=== PATIENT | female | born 1940 | race Caucasian/White ===

== ENCOUNTER 2019-08-10 09:37 | Outpatient (REF) | payer MEDICARE, MEDICAID, SELFPAY ==
[2019-08-10 19:02] LABS: ALT 33 U/L (14-59); AST 23 U/L (15-37); Albumin 3.7 g/dL (3.4-5.0); Alkaline Phosphatase 69 U/L (46-116); Anion Gap 5.7 mmol/L (3-11); BUN 21 mg/dL (7-18); Bilirubin, Total 0.6 mg/dL (0.2-1.0); CO2 31.3 mmol/L (21.0-32.0); CREATININE 0.93 mg/dL (0.55-1.02); Calculated LDL 97 mg/dL (<100); Chloride 104 mmol/L (98-107); Cholesterol 192 mg/dL (<200); Estimated GFR 58.46 (mL/min/1.73m2); Glucose 97 mg/dL (74-106); HDL Cholesterol 82 mg/dL (40-60); Potassium 4.3 mmol/L (3.5-5.1); Sodium 141 mmol/L (136-145); Total Protein 6.7 g/dL (6.4-8.2); Triglyceride 67 mg/dL (<150)
== END 2019-08-10 09:57 ==
LOC: NCHCN 09:37
PROVIDERS: PCP Physician Assistant; Visit Provider Nurse Practitioner Family
DX: E78.5 Hyperlipidemia, unspecified (principal)
CPT/HCPCS: 80053; 80061

== ENCOUNTER 2021-06-08 17:53 | Outpatient (REF) | payer MEDICARE, MEDICAID, SELFPAY ==
[2021-06-08 20:30] LABS: Abs Immature Grans 0.02 10^3/uL (0.0-0.06); Absolute Basophil Count 0.02 10^3/uL (0.0-0.2); Absolute Eosinophil Count 0.25 10^3/uL (0.0-0.7); Absolute Lymphocyte Count 1.72 10^3/uL (1.2-3.4); Absolute Monocyte Count 0.34 10^3/uL (0.1-0.8); Absolute Neutrophil Count 3.38 10^3/uL (1.2-6.7); Basophils % 0.3; Eosinophils % 4.4; HCT 40.1 % (36.0-46.0); HGB 12.8 g/dL (11.2-15.7); Immature Grans % 0.3; MCH 28.3 pg (27.0-33.0); MCHC 31.9 % (32.0-36.0); MCV 88.7 fL (80-95); MPV 11.4 fL (8.0-11.0); Monocytes % 5.9; Neutrophils % 59.1; Nucleated RBC 0 %; Platelet Count 236 10^3/uL (130-400); RBC 4.52 10^6/uL (3.93-5.22); RDW-SD 42.5 fL; WBC 5.73 10^3/uL (4.4-10.8)
[2021-06-08 20:54] LABS: ALT 24 U/L (14-59); AST 20 U/L (15-37); Albumin 3.6 g/dL (3.4-5.0); Alkaline Phosphatase 72 U/L (46-116); Anion Gap 7.6 mmol/L (3-11); BUN 25 mg/dL (7-18); Bilirubin, Total 0.3 mg/dL (0.2-1.0); CO2 28.4 mmol/L (21.0-32.0); CREATININE 0.9 mg/dL (0.55-1.02); Calcium 8.8 mg/dL (8.5-10.1); Chloride 105 mmol/L (98-107); Glucose 118 mg/dL (74-106); Potassium 4.5 mmol/L (3.5-5.1); Sodium 141 mmol/L (136-145); TSH 1.04 uIU/mL (0.36-3.74); Total Protein 6.9 g/dL (6.4-8.2)
[2021-06-09 14:51] LABS: Vitamin B12 543 pg/mL (193-986)
== END 2021-06-08 17:54 | disposition home or self-care (01) ==
LOC: NCHCN 17:53
PROVIDERS: PCP Physician Assistant; Visit Provider Nurse Practitioner Family
DX: R53.83 Other fatigue (principal)
CPT/HCPCS: 80053; 82607; 84443; 85025

== ENCOUNTER 2022-04-28 17:41 | Outpatient (REF) | payer MEDICARE, MEDICAID, SELFPAY ==
[2022-04-28 20:44] LABS: Abs Immature Grans 0.01 10^3/uL (0.0-0.06); Absolute Basophil Count 0.03 10^3/uL (0.0-0.2); Absolute Eosinophil Count 0.42 10^3/uL (0.0-0.7); Absolute Lymphocyte Count 1.26 10^3/uL (1.2-3.4); Absolute Monocyte Count 0.41 10^3/uL (0.1-0.8); Basophils % 0.4; Eosinophils % 5.6; HCT 26.9 % (36.0-46.0); HGB 8.6 g/dL (11.2-15.7); Immature Grans % 0.1; Lymphocytes % 16.7; MCH 27.9 pg (27.0-33.0); MCV 87 fL (80-95); MPV 10.2 fL (8.0-11.0); Monocytes % 5.4; Neutrophils % 71.8; Platelet Count 341 10^3/uL (130-400); RBC 3.08 10^6/uL (3.93-5.22); RDW 13.2 % (11.7-14.6); RDW-SD 41.5 fL; WBC 7.53 10^3/uL (4.4-10.8)
[2022-04-28 20:56] LABS: Iron 17 ug/dL (50-170); Total Iron Binding Capacity 370 ug/dL (250-450); Transferrin Sat 5 % (15-50)
[2022-04-28 21:08] LABS: Ferritin 15 ng/mL (8-252)
[2022-04-28 21:13] LABS: Diff Comment Diff Reviewed; Hypochromasia 2+; Ovalocytes 2+
== END 2022-04-28 17:42 | disposition home or self-care (01) ==
LOC: NCHCN 17:41
PROVIDERS: PCP Physician Assistant; Visit Provider Nurse Practitioner Family
DX: K92.2 Gastrointestinal hemorrhage, unspecified (principal)
CPT/HCPCS: 82728; 83540; 83550; 85025

== ENCOUNTER 2022-05-12 13:21 | Outpatient (REF) | payer MEDICARE, MEDICAID, SELFPAY ==
[2022-05-12 20:08] LABS: Abs Immature Grans 0.01 10^3/uL (0.0-0.06); Absolute Basophil Count 0.03 10^3/uL (0.0-0.2); Absolute Eosinophil Count 0.27 10^3/uL (0.0-0.7); Absolute Lymphocyte Count 1.11 10^3/uL (1.2-3.4); Absolute Monocyte Count 0.36 10^3/uL (0.1-0.8); Absolute Neutrophil Count 2.94 10^3/uL (1.2-6.7); Basophils % 0.6; Eosinophils % 5.7; HCT 27.6 % (36.0-46.0); HGB 8.5 g/dL (11.2-15.7); Immature Grans % 0.2; Lymphocytes % 23.5; MCH 26.3 pg (27.0-33.0); MCHC 30.8 % (32.0-36.0); MCV 85 fL (80-95); MPV 10.3 fL (8.0-11.0); Monocytes % 7.6; Neutrophils % 62.4; Platelet Count 279 10^3/uL (130-400); RBC 3.23 10^6/uL (3.93-5.22); RDW 13.2 % (11.7-14.6); RDW-SD 41.6 fL; WBC 4.72 10^3/uL (4.4-10.8)
== END 2022-05-12 13:22 | disposition home or self-care (01) ==
LOC: NCHCN 13:21
PROVIDERS: PCP Physician Assistant; Visit Provider Nurse Practitioner Family
DX: K92.2 Gastrointestinal hemorrhage, unspecified (principal)
CPT/HCPCS: 85025

== ENCOUNTER 2022-06-16 17:25 | Outpatient (REF) | payer MEDICARE, MEDICAID, SELFPAY ==
[2022-06-16 20:47] LABS: Abs Immature Grans 0.02 10^3/uL (0.0-0.06); Absolute Basophil Count 0.03 10^3/uL (0.0-0.2); Absolute Eosinophil Count 0.28 10^3/uL (0.0-0.7); Absolute Monocyte Count 0.48 10^3/uL (0.1-0.8); Absolute Neutrophil Count 3.68 10^3/uL (1.2-6.7); Basophils % 0.5; Eosinophils % 4.6; HCT 34.6 % (36.0-46.0); HGB 10.4 g/dL (11.2-15.7); Immature Grans % 0.3; Lymphocytes % 26.3; MCH 24.3 pg (27.0-33.0); MCHC 30.1 % (32.0-36.0); MCV 81 fL (80-95); MPV 10.8 fL (8.0-11.0); Monocytes % 7.9; Neutrophils % 60.4; Platelet Count 313 10^3/uL (130-400); RBC 4.28 10^6/uL (3.93-5.22); RDW 15.9 % (11.7-14.6); RDW-SD 45.7 fL; WBC 6.09 10^3/uL (4.4-10.8)
== END 2022-06-16 17:26 | disposition home or self-care (01) ==
LOC: NCHCN 17:25
PROVIDERS: PCP Physician Assistant; Visit Provider Nurse Practitioner Family
DX: D64.9 Anemia, unspecified (principal)
CPT/HCPCS: 85025

== ENCOUNTER 2022-07-15 15:03 | Outpatient (REF) | payer MEDICARE, MEDICAID, SELFPAY ==
[2022-07-15 19:23] LABS: HGB 11.3 g/dL (11.2-15.7); MCH 23.8 pg (27.0-33.0); MCHC 30.5 % (32.0-36.0); MCV 78 fL (80-95); Platelet Count 246 10^3/uL (130-400); RBC 4.75 10^6/uL (3.93-5.22); RDW 17.3 % (11.7-14.6); RDW-SD 49.1 fL; WBC 4.68 10^3/uL (4.4-10.8)
== END 2022-07-15 15:04 | disposition home or self-care (01) ==
LOC: NCHCN 15:03
PROVIDERS: PCP Physician Assistant; Visit Provider Nurse Practitioner Family
DX: D64.9 Anemia, unspecified (principal)
CPT/HCPCS: 85027

== ENCOUNTER 2022-12-22 13:50 | Outpatient (REF) | payer MEDICARE, MEDICAID, SELFPAY ==
--- NOTE | 2022-12-22 10:25 | SKI_PTH ---
PATIENT: Stefanie Swanson LOC: [facility] U#:[id number] AGE/SX: 82/F ROOM: RE12/22/[address]: Penny Bowen : 1940 BED: DIS: 12/22/2022 SPEC #: [id number] RECD: 12/23/22 12:23 STATUS: TJ REQ #: [id number] JENNIFER: 12/22/22 10:[address] RECD BY: Majo Downs ENTERED: 12/23/22 12:23 SP TYPE: DRAGAN NASH DR: Henry Lr Tissues: 1 - SKIN BIOPSY(SHAVE/PUNCH) Procedures: SKIN LEVEL 4 Comments: [id number]
[2022-12-22 22:13] LABS: HCT 39.4 % (36.0-46.0); HGB 12.4 g/dL (11.2-15.7); MCH 26.6 pg (27.0-33.0); MCHC 31.5 % (32.0-36.0); MCV 85 fL (80-95); MPV 11.3 fL (8.0-11.0); Platelet Count 238 10^3/uL (130-400); RBC 4.66 10^6/uL (3.93-5.22); RDW 13.4 % (11.7-14.6); RDW-SD 41.3 fL; WBC 6.11 10^3/uL (4.4-10.8)
[2022-12-22 22:24] LABS: BUN 21 mg/dL (7-18); CREATININE 0.9 mg/dL (0.55-1.02); Calcium 9.5 mg/dL (8.5-10.1); Chloride 103 mmol/L (98-107); Estimated GFR 64.63 (mL/min/1.73m2); Glucose 91 mg/dL (74-106); Potassium 4.5 mmol/L (3.5-5.1); Sodium 137 mmol/L (136-145)
== END 2022-12-22 13:51 | disposition home or self-care (01) ==
LOC: NCHCN 13:50
PROVIDERS: PCP Physician Assistant; Visit Provider Nurse Practitioner Family
DX: D64.9 Anemia, unspecified (principal); R53.81 Other malaise; C44.619 Basal cell carcinoma of skin of left upper limb, including shoulder
CPT/HCPCS: 80048; 85027; 88305

== ENCOUNTER 2023-12-19 19:36 | Outpatient (REF) | payer MEDICARE, MEDICAID, SELFPAY ==
--- OUTSIDE RECORDS SUMMARY | 2023-12-19 19:41 | XMS_ITS | Continuity of Care Document ---
Author Organization [facility] Address [address] [place] [address] Care Team Providers Care Weed Thinner Name Role Phone Primeau Jacob DAN Primary Care Physician Encounter [facility] [id number] Date(s): 09/30/23 - 09/30/23 [facility] [address] [place] [address] Discharge Disposition: Home or Self Care Attending Physician: Linette Bowen PRESIDENT CEO & FOUNDER Admitting Physician: Linette Bowen PRESIDENT CEO & FOUNDER Allergies, Adverse Reactions, Alerts Substance Reaction Severity Status ANIMAL DANDER Unknown Active LATEX Urticaria Moderate Active SHELLFISH DERIVED Palpitations Unknown Active HOUSE DUST Unknown Active MOLD Unknown Active sulfa drugs Unknown Active Assessment and Plan Diagnostic Tests Pending * Clostridium Difficile 09/30/23 * Giardia & Cryptosporidium Antigen Detection, Feces RUST 09/30/23 * Lactoferrin, Fecal by SARIKA [place] 09/30/23 * H. pylori Antigen UV 09/30/23 Medications Advair Diskus 250 mcg-50 mcg inhalation powder INHALE ONE PUFF BY MOUTH EVERY DAY Start Date: 09/13/22 Status: Ordered Albuterol (Eqv-Ventolin HFA) 90 mcg/inh inhalation aerosol INHALE TWO PUFFS BY MOUTH ONCE A DAY DIRECTED Start Date: 09/13/22 Status: Ordered atorvastatin 20 mg oral tablet 20 mg = 1 tab, TAKE ONE TABLET BY MOUTH EVERY NIGHT FOR CHOLESTEROL Start Date: 09/13/22 Status: Ordered azelastine 137 mcg/inh (0.1%) nasal spray USE 2 SPRAYS INTO BOTH NOSTRILS TWO TIMES A DAY NEEDED Start Date: 09/13/22 Status: Ordered glucosamine 0 Refill(s) Start Date: 09/13/22 Status: Ordered oxyCODONE 5 mg oral tablet 5 mg = 1 tab, Oral, every 8 hr, PRN as needed for pain, # 3 tab, 0 Refill(s), Pharmacy: [facility], 165.1, cm, 09/29/22 10:39:00 EDT, Height/Length Dosing, 61.9, kg, 09/29/22 10:39:00 EDT, Weight Dosing Start Date: 09/29/22 Status: Ordered Vital-D oral tablet 1 tab, Oral, Daily, # 100 tab, 0 Refill(s) Start Date: 09/13/22 Status: Ordered vitamin E 0 Refill(s) Start Date: 09/13/22 Status: Ordered Problem List Condition Confirmation Course Effective Dates Status H ealth Status Informant Anemia Confirmed Active Aortic stenosis Confirmed Active Back pain Confirmed Active Carpal tunnel syndrome, left Confirmed Active Chest pain Confirmed Active Fatigue Confirmed Active Gastric hemorrhage Confirmed Active Hand pain Confirmed Active Murmur Confirmed Active Hyperlipidemia Confirmed Active Urinary frequency Confirmed Active Insomnia Confirmed Active IBS (irritable bowel syndrome) Confirmed Active Stage 2 moderate COPD by GOLD classification Confirmed Active Osteopenia Confirmed Active Seasonal allergies Confirmed Active Seborrheic keratosis Confirmed Active Tendinitis of right shoulder Confirmed Active Procedures Procedure Date Related Diagnosis Body Site Status Carpal tunnel release 09/28/22 Com pleted Appendectomy Completed Tubal ligation Completed Results Laboratory List Name Date Fecal Bacterial Pathogens by PCR [facility] 09/03 11/25 Most recent to oldest [Reference Range]: 1 Salmonella PCR [facility] [Negative] Negative *NA* (09/30/23 4:00 PM) Shigella/Enteroinvasive E. coli [facility] [Neg ative] Negative *NA* (09/30/23 4:00 PM) [facility] CAMPYLOBACTER PCR [facility] [Negative] Negative *NA* (09/30/23 4:00 PM) Shiga Toxin PCR [facility] [Negative] Negative 1 *NA* (09/30/23 4:00 PM) 1Result Comment: Test performed [place] [address] Social History Social History Type Response Tobacco Tobacco use status u nknown Tobacco Use:. Sex Female Patient Care team information Care Team Personnel Name: Jacob Morton MD Position: No Access Member Role: Informed Provider Address: Address: [facility] [address] [place] [address]- Care Team Related Persons Name: HARDIK ENGLE Address: Home [address] [id number]
--- OUTSIDE RECORDS SUMMARY | 2023-12-19 19:41 | XMS_ITS | Encounter Summary ---
Author Organization [facility] Address [address] [place] [address] Care Team Providers Care Tree Surgeon Name Role Phone [facility] Rigoberto Belle Primary Care Provider Unknown, Provider Primary Care Provider [phone] Encounter Details Date Type Department Care Team (Late st Contact Info) Description 06/05/2022 Lab Requisition [facility] Pathology & Laboratory Medicine [facility] [address] [place] [address] Outr Resulting Lab, Provider Social History Tobacco Use Types Packs/Day Years Used Date Smoking Tobacco: Never Assessed Sex and Gender Information Value Date Recorded Sex Assigned at Not on file Gender Identity Not on file Sexual Orientation Not on file documented as of this encounter Plan of Treatment Upcoming Encounters Date Type Department Care Team (Late st Contact Info) Description 03/23/2024 13:00 EST Office Visit [facility] Dermatology 3rd Floor [facility] [address] [place] [address] Usha Bustos MD [address] [place] [address] documented as of this encounter Procedures Procedure Name Priority Date/Time Associated Diagnosis Comments GIARDIA AND CRYPTOSPORIDIUM ANTIGENS Routine 06/05/2022 11:40 EST documented in this encounter Results * GIARDIA AND CRYPTOSPORIDIUM ANTIGENS (06/05/2022 11:40 EST) Giardia and Cryptosporidium Cryptosporidium Antigen Neg and Giardia Antigen Neg Cryptosporidium Antigen Neg and Giardia Antigen Neg 12:58 EST [facility] Feces SPECIMEN FROM RECTUM / Unknown 06/05/2022 11:40 EST 06/06/2022 17:11 EST Provider Outr Resulting Lab MICROBIOLOGY - GENERAL ORDERABLES Performing Organization Address City/State/[facility] Co de Phone Number [facility] [address] [place] [address] documented in this encounter Visit Diagnoses Not on filedocumented in this encounter Care Teams Tree Surgeon Relationship Specialty Start Date End Date [facility], [address] [place] [address] PCP - General 03/17/23 12/07/23 Unknown, Provider, PCP - General 12/08/23 documented as of this encounter
--- OUTSIDE RECORDS SUMMARY | 2023-12-19 19:41 | XMS_ITS | Continuity of Care Document ---
Author Organization [facility] Address [address] [place] [address] Care Team Providers Care Coal Cutting Machine Operator Name Role Phone Primeau Jacob DAN Primary Care Physician Encounter [facility] [id number] Date(s): 09/29/22 - 09/29/22 [facility] [address] [place] [address] Discharge Disposition: Home or Self Care Attending Physician: Zaheer Shoemaker MD Admitting Physician: Zaheer Shoemaker MD Referring Physician: Zaheer Shoemaker MD Allergies, Adverse Reactions, Alerts Substance Reaction Severity Status ANIMAL DANDER Unknown Active LATEX Urticaria Moderate Active SHELLFISH DERIVED Palpitations Unknown Active HOUSE DUST Unknown Active MOLD Unknown Active sulfa drugs Unknown Active Assessment and Plan Future Appointments Functional Status 09/29/22 ADLs Independent Recent Travel History No recent travel Other exposure to Infectious Disease Non e Medications Advair Diskus 250 mcg-50 mcg inhalation [...] pain, # 3 tab, 0 Refill(s), Pharmacy: [facility], 165.1, cm, 09/29/22 10:39:00 EDT, Height/Length [...] pleted Appendectomy Completed Tubal ligation Completed Results Orders for Microbiology Reports Name Date MRSA Screen Culture 09/29/22 Microbiology Reports TEST:MRSA Screen Culture STATUS:Order in Progress BODY SITE: SOURCE:[facility] COLLECTED DATE/TIME:09/29/22 10:44 AM PRELIMINARY REPORT Negative MRSA screen Vital Signs Most recent to oldest [Reference Range]: 1 2 3 Temperature Temporal Artery [36-38 Deg C] 36.4 Deg C (09/29/22 3:30 PM) 35.7 Deg C *LOW* (09/29/22 1:35 PM) 35.8 Deg C *LOW* (09/29/22 1:21 PM) Temperature Temporal Artery (DegF) [97.3-100 Deg F] 97.52 Deg F (09/29/22 3:30 PM) 96.26 Deg F *LOW* (09/29/22 1:35 PM) 96.44 Deg F *LOW* (09/29/22 1:21 PM) Peripheral Pulse Rate [60-100 bpm] 50 bpm *LOW* (09/29/22 3:10 PM) 51 bpm *LOW* (09/29/22 3:05 PM) 52 bpm *LOW* (09/29/22 2:50 PM) Heart Rate Monitored [60-100 bpm] 52 bpm *LOW* (09/29/22 3:30 PM) 58 bpm *LOW* (09/29/22 3:20 PM) 59 bpm *LOW* (09/29/22 3:10 PM) Respiratory Rate [12-24 br/min] 19 br/min (09/29/22 3:30 PM) 16 br/min (09/29/22 3:20 PM) 16 br/min (09/29/22 3:10 PM) Blood Pressure [90-140/60-90 mmHg] 154/89mmHg *HI* (09/29/22 3:30 PM) 190/84mmHg *HI* (09/29/22 3:20 PM) 177/61mmHg *HI* (09/29/22 3:10 PM) Mean Arterial Pressure, Cuff [65-140 mmHg] 111 mmHg (09/29/22 3:30 PM) 119 mmHg (09/29/22 3:20 PM) 100 mmHg (09/29/22 3:10 PM) Weight 61.900 kg (09/29/22 10:17 AM) Weight Dosing 61.900 kg (09/29/22 10:17 AM) Height 165.100 cm (09/29/22 10:17 AM) Height/Length Dosing 165.100 cm (09/29/22 10:17 AM) Body Mass Index 22.710 kg/m2 (09/29/22 10:17 AM) Social History Social History Type Response Tobacco Tobacco use status u nknown Tobacco Use:. Sex Female Discharge instructions * Amada Viera: PERFORM Event Display: Discharge Instructions Authored Date: [id number] JENNIFER TOMAS :1940 Age:82 years Sex:Female Visit Date:09/29/2022 Primary Care Physician: Estella DAN, Jacob Olguin MD Hospital Discharge Instructions We would like to thank you for allowing us to assist you with your healthcare needs. The following includes patient education materials and information regarding your injury/illness. Your Next Steps Instructions From Your Care Team Orthopedic Surgery Discharge Instructions ok to take down dressings in 2 days shower and cover with band aids do not soak incisions ok to use hand for light activities ?? Pain Control ?Take your pain relief medication when discomfort first begins. ?Can use stool softener while taking the narcotic to avoid problems with constipation. ? Call your doctor if you: ?Develop a fever over 101 degrees. ?Have increased redness, warmth, discharge, swelling, or hardness around the operative site. ?Circulation changes such as tingling, numbness or your fingers appear blue or white. ?Your pain is not adequately controlled, despite taking your pain medication routinely. ?? On the day of surgery, or while taking narcotic pain medication: No driving, operating power equipment,?? drinking alcohol,?? or taking mood altering drugs? Apply warm, moist compress to IV site if sore or red, for 20 minutes, 4 times a day, for 2-3 days.?? Call your doctor if IV site soreness or redness persists. In the event of any problems after surgery, contact your doctor or the Emergency Room @ . Ortho Office: [phone]?? Scheduled Future Appointments Tuesday 3:30 PM EDT ?? With: Kate Gil PA-C Where: [facility] [address] [place] [address], [address] [place] [address] Status: Confirmed Medications What How Much When Instructions Next Dose New oxyCODONE (oxyCODONE 5 mg oral tablet) 1 tab Oral (given by mouth) Every 8 hours as needed for as needed for pain Pickup at [facility] Pharmacy Information [facility]: [address] [place], [place] [id number] [phone] Your Summary Your Care Team Admitting Physician - Brad MARCUM, Zaheer Correa MD Attending Physician - Zaheer Shoemaker MD Primary Care Physician - [facility], Jacob Olguin MD Referring Physician - Zaheer Shoemaker MD Tests Performed/Pending MRSA Screen Culture?-- Results Pending -- Discharge Vitals Temperature??(Temporal Artery) 96.3 ??F (35.7 ??C) Heart Rate??(Peripheral) 58 Heart Rate??(Monitored) 58 Respiratory Rate?? 16 Blood Pressure?? 166/67?? Height?? 65.00 in (165.100 cm) Weight?? 136.49 lb (61.900 kg) BMI?? 22.710 Allergies LATEX??(Urticaria) ANIMAL DANDER HOUSE DUST MOLD SHELLFISH DERIVED??(Palpitations) sulfa drugs Patient Name:GENOVEVAANKUSHAN I have received this information and my questions have been answered. Patient/Auto Service Writer Name: Patient/Auto Service Writer Signature: Relationship to Patient: Witness Name/Signature: Date: Electronically Signed on: 09/29/2022 13:48 EDTSigned by:PAF History and physical note * Aneta Chavez: PERFORM Event Display: History and Physical Authored Date: [id number] ADAMSJENNIFER Roth :1940 Age:82 years Sex:Female Primary Care Physician: Estella [facility], Jacob Olguin MD Visit Date:??09/13/2022 [1] ? 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 ??Wakes up at night quite often with this. Review of Systems Constitutional:?No??fevers,?No??chills,?No??sweats Eye:?No??recent visual problems ENT:?No??ear pain,?No??nasal congestion,?No??sore throat Respiratory:?No??shortness of breath,?No??cough Cardiovascular:?No??Chest pain,?No??palpitations,?No??syncope Gastrointestinal:?Nonausea,?No??vomiting,?No??diarrhea Genitourinary:?No??hematuria Alex/Lymph:?No??bruising tendency,?No??swollen lymph glands Endocrine:?No??excessive thirst,??No??excessive hunger Musculoskeletal:??No??back pain,??No??neck pain,??No??joint pain,??No??muscle pain,??No??decreased range of motion Integumentary:?No??rash,?No??pruritus,?No??abrasions Neurologic: Alert & oriented X 4 Psychiatric:?No??anxiety,?No??depression Physical Exam ?Vitals & Measurements ?HT:??165.10??cm?? WT:??143.1??kg?? BMI:??52.5?? BSA:??2.56?? Well-nourished well-developed acute distress alert and oriented appearing stated age. ??Has normal elbow wrist hand range of motion normal cap refill distally no open wounds signs of erythema or infection. ??Normal two-point termination distally.?? No real evidence of thenar atrophy bilaterally. ??Review of electrodiagnostics note intact??ulnar nerve with carpal tunnel syndrome on the left.?? Right side was not checked but the symptoms are equal and consistent Assessment/Plan 1.??Carpal tunnel syndrome, left??G56.02 ?Carpal tunnel syndrome options watchful waiting??bracing which has been done therapy injection or surgical intervention after discussing this she wanted to have surgical procedure performed whichwill be a carpal tunnel release she would like to and has asked for both sides to be done at once??which I felt was reasonable given the situation so we will set her up for bilateral carpal tunnel release and see her again at that time. ?Ordered: PAT Surgery / Procedure Nursing Review Request., 09/13/22 15:42:00 EDT, Carpal tunnel syndrome, left PAT Surgery / Procedure Nursing Review Request., 09/13/22 15:44:00 EDT, Brad [facility], Zaheer Correa MD, Primary Procedure, Local/Moderate Sedation, Bilateral carpal tunnel, Bilateral carpal tunnel syndrome. Need 30 minutes. Luxation. Date and time per uc architect. BMI 22, Carpal tunnel syndrome, left ?? Problem List/Past Medical History Ongoing ?Anemia ??Aortic stenosis ??Back pain ??Carpal tunnel syndrome, left ??Chest pain ??Fatigue ??Gastric hemorrhage ??Hand pain ??Hyperlipidemia ??IBS (irritable bowel syndrome) ??Insomnia ??Morbid obesity ??Murmur ??Osteopenia ??Seasonal allergies ??Seborrheic keratosis ??Stage 2 moderate COPD by GOLD classification ??Tendinitis of right shoulder ??Urinary frequency Historical ?No qualifying data Medications ??Advair Diskus 250 mcg-50 mcg inhalation powder ??Albuterol (Eqv-Ventolin HFA) 90 mcg/inh inhalation aerosol ??atorvastatin 20 mg oral tablet, 20 mg= 1 tab ??azelastine 137 mcg/inh (0.1%) nasal spray ??glucosamine ??Vital-D oral tablet, 1 tab, Oral, Daily ??vitamin E Allergies LATEX??(Urticaria) ANIMAL DANDER HOUSE DUST MOLD SHELLFISH DERIVED??(Palpitations) sulfa drugs Social History Electronic Cigarette/Vaping ??Electronic Cigarette Use: Never. Tobacco ??Tobacco use status unknown Tobacco Use:. [2] [1]??Office Visit Note; Zaheer Shoemaker MD 09/13/2022 15:44 EDT [2]??Office Visit Note; Zaheer Shoemaker MD 09/13/2022 15:44 EDT Electronically Signed on 09/22/22 12:07 PM Aneta Chavez Electronically Signed on 09/22/22 01:38 PM Zaheer Shoemaker MD Patient Care team information Care Team Personnel Name: [facility]ella [facility] Position: No Access Member Role: Primary Care Physician Address: Address: [address] [address] Care Team Related Persons Name: HARDIK ENGLE Address: Home [address] [place] [id number]
--- OUTSIDE RECORDS SUMMARY | 2023-12-19 19:41 | XMS_ITS | Encounter Summary ---
Author Organization [facility] Address [address] [place] [address] Care Team Providers Care Weapons Officer Naval Activity Name Role Phone [facility] Rigoberto Belle Primary Care Provider Unknown, Provider Primary Care Provider [phone] Encounter Details Date Type Department Care Team (Late st Contact Info) Description 05/09/2020 Lab Requisition [facility] Pathology & Laboratory Medicine [facility] [address] [place] [address] Outr Resulting Lab, Provider Social History Tobacco [...] Info) Description 03/23/2024 13:00 EST Office Visit [facility] Dermatology 3rd Floor [facility] [address] [place] [address] Usha Bustos MD [address] [place] [address] documented as of this encounter Procedures Procedure Name Priority Date/Time Associated Diagnosis Comments ZZCOVID-19 TEST [facility] PCR Today 05/09/2020 9:15 EST COVID-19 TESTING Routine 05/09/2020 9:15 EST documented in this encounter Results * COVID-19 TEST [facility] PCR (05/09/2020 9:15 EST) Swab ENTIRE NASOPHARYNX / Unknown 05/09/2020 9:15 EST 05/09/2020 16:45 EST Provider Outr Resulting Lab MICROBIOLOGY - GENERAL ORDERABLES [facility] [address] [place] [address] * COVID-19 TESTING (05/09/2020 9:15 EST) COVID-19 rt-PCR Result Negative Negative 05/10/2020 14:[address] [facility] Comment: This test was developed and its performance characteristics determined by [facility]. It has not been cleared or approved by the US Food and Drug Administration. FDA does not require this test to go through premarket FDA review. This test is used for clinical purposes. It should not be regarded as investigational or for research. This laboratory is certified under the Clinical Laboratory Improvement Amendments (CLIA) as qualified to perform high complexity clinical laboratory testing. This test is based on the [facility] COVID-19 Emergency Use Authorization (EUA) assay, with minor modification as defined by the FDA Performed on the [employer] 7 Pro RT-PCR System. This test has not been FDA cleared or approved. This test has been authorized by FDA under an EUA for use by authorized laboratories. This test has been authorized only for detection of nucleic acid from 2019-nCoV, not for any other viruses or pathogens. This test is only authorized for the duration of the declaration that circumstances exist justifying the authorization of emergency use of in vitro diagnostic tests for detection and/or diagnosis of 2019-nCoV under section 564(b)(1) of Act, 21 U.S.C ?? 360bbb-3(b) (1), unless the authorization is terminated or revoked sooner. Negative results do not preclude 2019-nCoV infection and should not be used as the sole basis for treatment or other patient management decisions. Negative results must be combined with clinical observations, patient history, and epidemiological information. Performing Lab [facility] Lab 05/10/2020 14:[address] [facility] Swab 05/09/2020 9:15 EST 05/09/2020 16:45 EST Provider Outr Resulting Lab MICROBIOLOGY - GENERAL ORDERABLES [facility] [address] [place] [address] documented in this encounter Visit Diagnoses Not on filedocumented in this encounter Additional Health Concerns Infection Onset Date Last Indicated Resolved Time COVID-19 04/14/2020 04/14/2020 05/14/2020 22:1 6 EST documented as of this encounter Care Teams Weapons Officer [employer] Relationship Specialty Start Date End Date [facility], [address] [place] [address] PCP - General 03/17/23 12/07/23 Unknown, Provider, PCP - General 12/08/23 documented as of this encounter
--- OUTSIDE RECORDS SUMMARY | 2023-12-19 19:41 | XMS_ITS | Encounter Summary ---
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 No 03/17/2023 Cognitive Status Response Date of Assessm ent Because of a physical, menta l, or emotional condition, does this person have serious difficulty concentrating, remembering, or making decisions? No 03/17/2023 documented as of this encounter Patient Instructions * Patient Instructions* Ruel Gibson - 04/14/2023 8:00 EST WOUND CARE INSTRUCTIONS FOR SKIN SURGERY (SUTURED OR OPEN WOUND) SUTURE REMOVAL IN 10 DAYS BANDAGE: Leave the bandage in place for 24 hours. You may shower or bathe after 24 hours. Remove the bandage and replace it after the showering (see below). DISCOMFORT: Expect discomfort. Take acetaminophen (for example, TylenolTM) as directed. If this does not provide sufficient relief, take ibuprofen (AdvilTM), up to 600 mg every 8 hours). You may takeboth of these together or alternate them. We do not routinely prescribe narcotic pain medications. If pain is severe and not relieved by the above measures, please call the office. BLEEDING: Some blood seeping into the bandage is NORMAL. If the bleeding soaks through the dressing, remove the dressing, and apply firm, steady pressure with a moist clean wash cloth for fifteen minutes. If the bleeding stops, redress the wound. If not, call our office. ACTIVITY: No strenuous activity for the first 48 hours after surgery. Keep your head elevated. APPEARANCE: Swelling and bruising are normal. Some redness is normal, but the wound should not be red, hot and tender. If the wound rapidly swells up or becomes increasingly inflamed, warm, or drainspus, please call our office. WOUND CARE: Change the dressing daily and/or when it becomes wet. Wash hands with soap and water and clean the wound with soap and warm water. You may use 3% hydrogen peroxide and a cotton swab to loosen and remove the crusting from a wound with stitches. Apply a thin layer of sterile petroleum jelly over the wound. Cover with Telfa or similar non-stick dressing or bandage Tape in place with Hypafix or paper tape Mild tenderness, pinpoint bleeding and a thin mucous-like discharge are normal. Keep all sutured wounds covered daily for a full 7 days. Open wounds will need to be covered for much longer. If you have sutures that require removal, you will receive specific instructions regarding when andwhere to have them removed. If you have dissolving sutures they will fall apart and be gone in 10-14 days. OPEN WOUND HEALING (Wound without sutures): If your wound was left open to heal on its own, approximately one week after surgery a pink/red halo will form around the outside of the wound; this is newskin. The center of the wound will appear yellowish white and produce some drainage. The pink halo will slowly migrate toward the center of the wound until the wound is covered with new shiny pink skin. There will be a mucus-like drainage on the dressing and there will be no more drainage when the wound is completely healed. WHEN TO CONTACT YOUR PHYSICIAN: Contact you physician if your wound becomes increasingly sore, tender, red, or warm, or if the surgery site rapidly swells. Please call our office [phone] or if you have any questions or concerns. documented in this encounter Progress Notes * Ruel Gibson - 04/14/2023 0800 EST S: Patient is here today for excision of a melanoma in situ of the left upper back. Also has a slowly healing wound from the prior excision of BCC on the left upper arm. O: - pink biopsy scar of left upper back - left upper arm: linear scar with central hypergranulation tissue A/P: Melanoma in situ - excision, see note below 2. Hypergranulation tissue of left upper arm - area was prepped in a sterile fashion with alcohol swab and silver nitrate was applied topically to hypergranulation tissue. LINEAR EXCISION PROCEDURE NOTE PATIENT INFORMATION: Stefanie Swanson [id number] 1940 DATE OF PROCEDURE: 04/14/2023 SURGEON: Ruel Gibson DO PUBLICATIONS EDITOR: Huyen Whitt MD PREOPERATIVE DIAGNOSIS: Melanoma in-situ LOCATION: left upper back LESION SIZE: 1.5 x 1.5 cm MARGINS PER SIDE: 0.5 cm TOTAL EXCISION DIAMETER: 2.5 x 2.5 cm INDICATIONS: The indication, risks, benefits and alternatives to this procedure were discussed in detail with the patient and all questions were answered. The patient had no contraindications to surgery with local anesthesia. Informed consent was obtained in writing. PROCEDURE: Patient position: right lateral decubitus Anesthesia: 1% lidocaine with epinephrine 1:100,000 local infiltration Prep: Chlorhexidine The patient was brought to the operative suite. The lesion was identified, prepped and draped in the usual sterile fashion. Following complete anesthesia, the skin was incised in a fusiform fashion to the level of the subcutis with a number 15 surgical blade. The tissue was removed in the mid subcutis. The wound was undermined in all directions with care to avoid functionally important nerves and vessels. Hemostasis was achieved with spot electrocoagulation. The wound edges were approximated with 4.0 Vicryl (polyglactin 910) buried interrupted sutures at the level of the dermis and subcutis. The epidermis was approximated with 4.0 Prolene (polypropylene). The final wound length was 8.5 centimeters. The wound edges were cleansed with peroxide and a sterile pressure dressing was applied over telfa and petrolatum. Verbal and written wound care instructions were given. The patient tolerated the procedure well and left the operating suite in excellent condition. The surgical specimen was submitted to pathology for histologic evaluation. POSTOPERATIVE DIAGNOSIS: Melanoma in-situ FINAL PROCEDURE: Excision and Linear Repair BLOOD LOSS: minimal OPERATIVE TIME: 30 minutes COMPLICATIONS: none NOTE: Patient will have sutures removed in 10 days at outpatient rehab facility. Ruel Gibson 04/14/2023 9:22 Attestation Statement: I was present for the entire procedure. Huyen Whitt MD Dermatology [facility] documented in this encounter Miscellaneous Notes * Result Encounter Note - Ruel Gibson - 04/14/2023 0800 EST LVM to discuss results. Cathy, please let Stefanie know that there was no residual melanoma left behind in the excision. No further treatment needed at this time. * Result Encounter Note - Susan Tillman MA - 04/14/2023 0800 EST Called patient, relayed biopsy results. Patient understood and had no further questions about results. Patient is interested in a referral to have her stitches removed at [facility] in the wound care/rehabilitation services department with Gris Li. She already has an appointment on Tuesday. Susan Tillman MA 15:11 04/19/2023 documented in this encounter Plan of Treatment Upcoming Encounters Date Type Department Care Team (Late st Contact Info) Description 03/23/2024 13:00 EST Office Visit [facility] Dermatology 3rd Floor [facility] [address] [place] [address] Usha Bustos MD [address] [place], [place] [address] documented as of this encounter Procedures Procedure Name Priority Date/Time Associated Diagnosis Comments DERMATOLOGY SURGICAL PATHOLOGY Routine 04/14/2023 8:37 EST Melanoma in situ of torso excluding breast (HCC-CMS) documented in this encounter Results * DERMATOLOGY SURGICAL PATHOLOGY (04/14/2023 8:37 EST) Note to Patient The following pathology results have been interpreted by your pathologist and may be available to you before your health provider has had the opportunity to review them. Please allow time for your provider to receive these results and explore management options, if applicable. 04/18/2023 14:02 [facility] Final Diagnosis A. SKIN OF BACK, LEFT UPPER, EXCISION: - Epidermal reparative change and dermal scar, consistent with biopsy site. - No residual melanoma in situ identified. 04/18/2023 14:02 [facility] Attestation By the signature below, the attending physician certifies that they have 1) personally conducted a gross and/or microscopic examination of the described specimen(s), and/or personally interpreted the results of laboratory testing of the described specimen(s), and 2) personally rendered or confirmed the above diagnosis. 04/18/2023 14:02 [facility] at 1402 Microscopic Description The epidermis shows reparative changes with effacement of the rete ridge pattern. The underlying dermis has fibrosis with fibroblasts and collagen bundles oriented parallel to the epidermis. There is a reactive vascular pattern. 04/18/2023 14:02 [facility] Clinical History Excision of MIS; clinical diagnosis code: D03.59 04/18/2023 14:02 [facility] Gross Description A. Received in formalin labelled with proper patient identification (initials D, S) and A. Left upper back is an ellipse of white skin oriented as per the Surgical pathology requisition that measures 7.5 cm medial to lateral by 2.3 cm superior to inferior and excised to a depth of 0.9 cm. The cutaneous surface has a central white wrinkled firm area with slightly irregular borders that measures 1.3 x 1.0 cm. The specimen is sectioned from medial (level 1) to lateral (level 22 ) and entirely submitted as follows: INK RICHARDS: Blue-surgical margin of superior half of specimen Black surgical margin of inferior half of specimen BLOCK RICHARDS: A1- level 1, medial tip, reverse enface A2- levels 2 and 3 A3- level 4 A4- level 5 A5- level 6 A6- level 7 A7- level 8 A8- level 9 A9- level 10 A10- level 11 A11- level 12 A12- level 13 A13- level 14 A14- level 15 A15- level 16 A16- levels 17 and 18 A17- level 19 and 20 A18- level 21 A19- level 22, lateral tip, reverse enface PORSCHE VELIZ(ASCP) 04/15/2023 9:07 04/18/2023 14:02 [facility] Performing Lab [facility] 04/18/2023 14:02 [facility] Scanned Images 04/18/2023 14:02 [facility] Tissue SPECIMEN FROM SKIN / Unknown Collection, Other / Unknown 04/14/2023 8:37 EST 04/14/2023 11:23 EST Huyen Whitt MD PATHOLOGY ORDERABLES [facility] [address] [place] [address] documented in this encounter Visit Diagnoses Diagnosis Melanoma in situ of torso excluding breast (HCC-CMS)- Primary documented in this encounter Care Teams Hardware Sales Assistant Relationship Specialty Start Date End Date [facility], [address] [place] [address] PCP - General 03/17/23 12/07/23 documented as of this encounter
--- OUTSIDE RECORDS SUMMARY | 2023-12-19 19:41 | XMS_ITS | Encounter Summary ---
Author Organization [facility] Address [address] [place] [address] Care Team Providers Care Retort Load Expediter Name Role Phone [facility], Rigoberto Primary Care Provider Reason for Visit * Reason Comments Basal Cell Carcinoma Left upper arm * Referral (Routine) - Receiving Office to Obtain Authorization Specialty Diagnoses / Procedures [facility]erred To Contact Dermatology Diagnoses Basal cell carcinoma of skin, unspecified Linette Bowen, [address] [place] [address] [facility] Dermatology [address] [place] [id number] Referral ID Status Reason Start Date Expiration Date Visits Requested Visits Authorized [id number] Receiving Office to Obtain Authorization 1 1 Encounter Details Date Type Department Care Team (Late st Contact Info) Description 03/17/2023 9:00 EST Office Visit [facility] Dermatology 5th Floor [facility] [address] [place], [place] [address] Ruel Gibson [address] [place] [phone] Basal cell carcinoma (BCC) of left upper arm (Primary Dx); Neoplasm of uncertain behavior of skin Social History Tobacco Use Types Packs/Day Years [...] Instructions * Patient Instructions* Ruel Gibson - 03/17/2023 9:00 EST WOUND CARE INSTRUCTIONS FOR SKIN SURGERY (SUTURED OR OPEN WOUND) BANDAGE: Leave the bandage in place for [...] site rapidly swells. Please call our office [phone] or if you have any questions or concerns. documented in this encounter Progress Notes * Ruel Gibson - 03/17/2023 0900 EST Images from the original note were not included. S: Stefanie is here today for excision of a BCC of left posterior shoulder O: - left posterior shoulder: 0.8cm x 0.6cm pink shiny papule - left upper back: 1cm irregularly pigmented patch A/P: BCC, left posterior shoulder - excision, see note below Neoplasm of uncertain behavior - Location: left upper back - Ddx: r/o MM - Given the diagnostic uncertainty, offered to biopsy this today. Pt agrees. Discussed the risks ofa biopsy to include bleeding, infection and scarring. We try to minimize all three but it is inevitable that scarring will occur. Pt agrees that the benefit of the biopsy takes precedence. See procedure note below for details. - shave biopsy today, see procedure note below LINEAR EXCISION PROCEDURE NOTE PATIENT INFORMATION: Stefanie Swanson [id number] 1940 DATE OF PROCEDURE: 03/17/2023 SURGEON: Ruel Gibson DO ELEMENT BURNER: Huyen Whitt MD PREOPERATIVE DIAGNOSIS: Basal cell carcinoma LOCATION: left posterior shoulder LESION SIZE: 0.8 x 0.6 cm MARGINS PER SIDE: 0.4 cm TOTAL EXCISION DIAMETER: 1.6 x 1.4 cm Risk factors: Pacemaker/ICD: None Anticoagulants: None Total joint replacements/valves: None Allergies: Patient has No Known Allergies. Immunosuppression: None INDICATIONS: The indication, risks, benefits and alternatives to this procedure were discussed in detail with the patient and all questions were answered. The patient had no contraindications to surgery with local anesthesia. Informed consent was obtained in writing. PROCEDURE: Patient position: right lateral decubitus Anesthesia: 1% lidocaine with epinephrine 1:100,000 local infiltration Prep: Povodine Iodine The patient was brought to the operative suite. The lesion was identified, prepped and draped in the usual sterile fashion. Following complete anesthesia, the skin was incised in a fusiform fashion to the level of the subcutis with a number 15 surgical blade. It was removed in the mid subcutis. Thewound was undermined in all directions with care to avoid functionally important nerves and vessels. Hemostasis was achieved with spot electrocoagulation. The wound edges were approximated with 4.0 Monocryl (poliglecaprone 25) buried interrupted sutures at the level of the dermis and subcutis. The epidermis was approximated with 5.0 Fast absorbing plain gut. The final wound length was 6.0 centimeters. The wound edges were cleansed with peroxide and a sterile pressure dressing was applied over telfa and petrolatum. Verbal and written wound care instructions were given. The patient tolerated the procedure well and left the operating suite in excellent condition. The surgical specimen was submitted to pathology for histologic evaluation. POSTOPERATIVE DIAGNOSIS: Basal cell carcinoma FINAL PROCEDURE: Excision and Linear Repair BLOOD LOSS: minimal OPERATIVE TIME: 30 minutes COMPLICATIONS: none NOTE: none SHAVE BIOPSY PATIENT INFORMATION: Stefanie Swanson : MRN: [id number] SURGEON: DO Huyen Galindo MD The indication, risks, benefits and alternatives to this procedure were discussed in detail with the patient and all questions were answered. Informed consent was obtained in writing. PROCEDURE NOTE Specimen A Procedure: Tangential Shave Indication: Diagnostic Biopsy Site: left upper back Anesthesia: 1% lidocaine with epinephrine 1:100,000 local infiltration Prep: Alcohol Procedure performed by: The resident performed the procedure. The lesion was prepped as above and locally anesthetized. The specimen was removed by tangential shave using a Dermablade??. Hemostasis was achieved with pressure and/or aluminum chloride. The wound was cleansed with alcohol and a sterile dressing was applied over Petrolatum ointment. Verbal and written wound care instructions were given.The specimen was submitted to pathology for histological evaluation. Ruel Gibson DO 03/17/2023 10:50 Attestation Statement: I was present for the entire procedure. And present for the biopsy. Huyen Whitt MD Dermatology [facility] documented in this encounter Miscellaneous Notes * Result Encounter Note - Ruel Gibson - 03/17/2023 0900 EST LVM to discuss biopsy results and requested call back. * Result Encounter Note - Ruel iGbson - 03/17/2023 0900 EST Spoke to patient and reviewed BCC was completely excised. Discussed new dx of MIS on upper back andrecommended excision of this area. Yvette, please put her on my surgery schedule on April 14 at 8am. Thank you * Result Encounter Note - Yvette Price MA - 03/17/2023 0900 EST Patient scheduled for excision of MIS upper back on 04/14/2023 at 8 AM. Called patient and relayed appointment time. Patient demonstrated good understanding, no further questions. YVETTE PRICE MA 03/23/2023 9:48 documented in this encounter Plan of Treatment Upcoming Encounters Date Type Department Care Team (Late st Contact Info) Description 03/23/2024 13:00 EST Office Visit [facility] Dermatology 3rd Floor [facility] [address] [place] [address] Usha Bustos MD [address] [place], [place] [id number] documented as of this encounter Procedures Procedure Name Priority Date/Time Associated Diagnosis Comments DERMATOLOGY SURGICAL PATHOLOGY Routine 03/17/2023 10:47 EST Basal cell carcinoma (BCC) of left upper arm Neoplasm of uncertain behavior of skin documented in this encounter Results * DERMATOLOGY SURGICAL PATHOLOGY (03/17/2023 10:47 EST) Note to Patient The following pathology results have been interpreted by your pathologist and may be available to you before your health provider has had the opportunity to review them. Please allow time for your provider to receive these results and explore management options, if applicable. 03/21/2023 12:42 [facility] Final Diagnosis A. SKIN OF SHOULDER, LEFT POSTERIOR, EXCISION: - Basal cell carcinoma, residual, completely excised. B. SKIN OF BACK, LEFT UPPER, SHAVE BIOPSY: - Malignant melanoma, in situ (superficial spreading type). See comment and synoptic report. - Melanoma in situ narrowly encompassed within the examined sections. 03/21/2023 12:42 [facility] Diagnosis Comment The shave biopsy from the left upper back shows a broad and atypical junctional melanocytic proliferation. Prominent pagetoid migration is seen throughout the proliferation and foci of confluence are identified. Cytologic atypia is noted and adnexal extension is seen. A dermal component is not identified. The findings are consistent with melanoma in-situ.Representat milind slides of this case were reviewed at the intradepartmental consultation conference. 03/21/2023 12:42 [facility] Attestation By the signature below, the attending physician certifies that they have 1) personally conducted a gross and/or microscopic examination of the described specimen(s), and/or personally interpreted the results of laboratory testing of the described specimen(s), and 2) personally rendered or confirmed the above diagnosis. 03/21/2023 12:42 [facility] at 1242 Synoptic MELANOMA OF THE SKIN: Biopsy MELANOMA OF THE SKIN: BIOPSY - B 8th Edition - Protocol posted: 2021 SPECIMEN ?? Procedure: ?Biopsy, shave ?? Specimen Laterality: ?Left TUMOR ?? Tumor Site: ?Skin of trunk ?? Histologic Type: ?Melanoma in situ, superficial spreading type (low-cumulative sun damage (CSD) melanoma in situ) ?? Ulceration: ?Not identified ?? Tumor Regression: ?Not identified ?? MARGINS: ? Margin Status for Melanoma in Situ: ?All margins negative for melanoma in situ ? Closest Peripheral Margin Location(s) to Melanoma in situ: ?peripheral ? Distance from Melanoma in Situ to Peripheral Margin: ?Less than 1 mm ?? PATHOLOGIC STAGE CLASSIFICATION (pTNM, AJCC 8th Edition): ? pT Category: ?pTis 03/21/2023 12:42 [facility] Clinical History A. Excision of BCC; B.Irregularly pigmented patch, r/o MM; clinical diagnosis code: C44.619, D48.5 03/21/2023 12:42 [facility] Gross Description A. Received in formalin labelled with proper patient identification (initials D, S) and left posterior shoulder is an oriented elliptical excision of evans skin with a suture at 1 tip which is arbitrarily designated 12 o'clock (4.5 cm from 12 o'clock to 6 o'clock, 1.6 cm from 9 o'clock to 3 o'clock, and is excised to a depth of 0.6 cm). The skin surface displays a central light evans area measuring 0.7 x 0.7 cm. The 9 o'clock margin is inked blue and the 3 o'clock margin is inked black. The specimen is serially sectioned from 12 o'clock to 6 o'clock and is entirely submitted as follows: BLOCK RICHARDS A1- 12 o'clock tip, reverse en face A2-A6- 10 central sections A7- 6 o'clock tip, reverse en face B. Received in formalin labelled with proper patient identification (initials D, S) and left upper back is a skin shave of evans skin (1.8 x 1.2 x 0.1 cm). The skin surface displays a brown evans variegated macule with irregular borders (0.8 x 0.7 cm). The margin is inked blue, the specimen is sectioned into 6 sections and entirely submitted in B1-B3. Marie Reynolds 03/18/2023 11:53 03/21/2023 12:42 EST [facility] Performing Lab [facility] 03/21/2023 12:42 EST [facility] Scanned Images 03/21/2023 12:42 EST [facility] Tissue SPECIMEN FROM SKIN / Unknown Collection, Other / Unknown 03/17/2023 10:47 EST 03/17/2023 12:05 EST Tissue specimen (specimen) SPECIMEN FROM SKIN / Unknown 03/17/2023 10:47 EST 03/17/2023 12:05 EST Huyen Whitt MD PATHOLOGY ORDERABLES [facility] [address] [place] [address] documented in this encounter Visit Diagnoses Diagnosis Basal cell carcinoma (BCC) of left upper arm- Primary Neoplasm of uncertain behavior of skin documented in this encounter Historical Medications * This list may reflect changes made after this encounter. Medication Sig Dispensed Refills Start Date End Date Melatonin 1 mg tablet Take by mouth. atorvastatin (LIPITOR) 10 mg tablet Take 1 Tablet by mouth daily. fluticasone propion-salmeteroL (ADVAIR) 100-50 mcg/dose diskus inhaler Inhale 1 Puff as directed every 12 hours. ferrous gluconate (FERGON) 324 mg (38 mg iron) tablet Take 1 Tablet by mouth daily with breakfast. famotidine (PEPCID) 20 mg tablet Take 1 Tablet by mouth 2 times daily. added in this encounter Care Teams Retort Load Expediter Relationship Specialty Start Date End Date [facility], [address] [place] [address] PCP - General 03/17/23 12/07/23 documented as of this encounter
--- OUTSIDE RECORDS SUMMARY | 2023-12-19 19:41 | XMS_ITS | Continuity of Care Document ---
Author Organization [facility] Address [address] [place] [address] Care Team Providers Care Mainframe Programmer Analyst Name Role Phone Jacob Joseph Primary Care Physician Encounter [facility] Date(s): 06/05/22 - 06/05/22 [facility] [address] [place] [address] Discharge Disposition: Home or Self Care Attending Physician: Keri Sam PA-C Admitting Physician: Keri Sam PA-C Referring Physician: Keri Sam PA-C Allergies, Adverse Reactions, Alerts Substance Reaction Severity Status ANIMAL DANDER Unknown Active LATEX Urticaria Moderate Active SHELLFISH DERIVED Palpitations Unknown Active HOUSE DUST Unknown Active MOLD Unknown Active sulfa drugs Unknown Active Assessment and Plan Diagnostic Tests Pending * Clostridium Difficile 06/05/22 * Fecal Bacterial Pathogens by PCR [facility] 06/05/22 * Giardia/Crypto Ag 06/05/22 * Lactoferrin, Fecal by [facility] 06/05/22 * Ova/Parasite Exam [facility] 06/05/22 * Generic Orderable [facility] 06/05/22 Social History Social History Type Response Sex Female Patient Care team information Care Team Personnel Name: Jacob Joseph MD Position: Physician Member Role: Primary Care Physician Address: Address: [address] [place] [address] Care Team Related Persons Name: ONIELSIMINHARDIK Randy Address: Home [address] [facility] [phone]
--- OUTSIDE RECORDS SUMMARY | 2023-12-19 19:41 | XMS_ITS | Encounter Summary ---
Author Organization [facility] Address [address] [place] [address] Care Team Providers Care Newscast Producer Name Role Phone [facility] Rigoberto Belle Primary Care Provider Unknown, Provider Primary Care Provider Encounter Details Date Type Department Care Team (Late st Contact Info) Description 06/05/2022 Lab Requisition [facility] Pathology & Laboratory Medicine [facility] [address] [place] [address] Outr Resulting Lab, Provider Social History Tobacco [...] Info) Description 03/23/2024 13:00 EST Office Visit [facility] Dermatology 3rd Floor [facility] [address] [place] [address] Usha Bustos MD [address] [place] [address] documented as of this encounter Procedures Procedure Name Priority Date/Time Associated Diagnosis Comments FECAL BACTERIAL PATHOGENS BY PCR Routine 06/05/2022 11:40 EST OVA/PARASITE EXAM Routine 06/05/2022 11: 40 EST documented in this encounter Results * OVA/PARASITE EXAM (06/05/2022 11:40 EST) Parasite No ova and parasites seen. 06/07/2022 13:41 EST [facility] Feces SPECIMEN FROM RECTUM / Unknown 06/05/2022 11:40 EST 06/06/2022 17:11 EST Narrative [facility] - 06/07/2022 13:41 EST (If Cryptosporidium, Cyclospora, or Microsporidium are suspected, specific tests must be requested.) Single negative specimen does not rule out the possibility of a parasitic infection. Provider Outr Resulting Lab MICROBIOLOGY - GENERAL ORDERABLES Performing Organization Address City/[facility]/ZIP Co de Phone Number [facility] [address] [place] [address] * FECAL BACTERIAL PATHOGENS BY PCR (06/05/2022 11:40 EST) Salmonella PCR Negative Negative 06/06/2022 22:15 EST [facility] Shigella/Enteroin vasive E. coli Negative Negative 06/06/2022 22:15 EST [facility] HN LAB CAMPYLOBACTER PCR Negative Negative 06/06/2022 22:15 EST [facility] Shiga Toxin PCR Negative Negative 22:15 EST [facility] Feces SPECIMEN FROM RECTUM / Unknown 06/05/2022 11:40 EST 06/06/2022 17:11 EST Provider Outr Resulting Lab MICROBIOLOGY - GENERAL ORDERABLES [facility] [address] [place] [address] documented in this encounter Visit Diagnoses Not on filedocumented in this encounter Care Teams Newscast Producer Relationship Specialty Start Date End Date [facility] C[facility], [address] [place] [address] PCP - General 03/17/23 12/07/23 Unknown, Provider, PCP - General 12/08/23 documented as of this encounter
--- OUTSIDE RECORDS SUMMARY | 2023-12-19 19:41 | XMS_ITS | Encounter Summary ---
Author Organization [facility] Address [address] [place] [address] Care Team Providers Care Cardiac Tech Name Role Phone [facility] Rigoberto Belle Primary Care Provider Unknown, Provider Primary Care Provider [phone] Reason for Visit * Reason Onset Date Comments Appointment Related 12/05/2023 Cancel and r eschedule Encounter Details Date Type Department Care Team (Late st Contact Info) Description 12/05/2023 Telephone [facility] Endocrinology - [address] [address] Usha Bustos MD [address] [place], [place] [address] Appointment Related (Cancel and reschedule) Social History Tobacco Use Types Packs/Day Years Used Date Smoking Tobacco: Former Cigarettes Passive Smoke Exposure: Never Smokeless Tobacco: Never Sex and Gender Information Value Date Recorded [...] No 03/17/2023 documented as of this encounter Plan of Treatment Upcoming Encounters Date Type Department Care Team (Late st Contact Info) Description 03/23/2024 13:00 EST Office Visit [facility] Dermatology 3rd Floor [facility] [address] [place], [place] [phone] Usha Bustos MD [address] [place], [place] [address] documented as of this encounter Visit Diagnoses Not on filedocumented in this encounter Care Teams Cardiac Tech Relationship Specialty Start Date End Date [facility] C[facility], [address] [place] [address] PCP - General 03/17/23 12/07/23 Unknown, Provider, PCP - General 12/08/23 documented as of this encounter
--- OUTSIDE RECORDS SUMMARY | 2023-12-19 19:41 | XMS_ITS | Encounter Summary ---
Author Organization [facility] Address [address] [place] [address] Care Team Providers Care Health Educator Name Role Phone [facility] Rigoberto Belle Primary Care Provider Reason for Visit * Reason Onset Date Comments Orders (Non Pre-visit) 04/22/2023 Encounter Details Date Type Department Care Team (Late st Contact Info) Description 04/22/2023 Telephone [facility] Dermatology 3rd Floor [facility] [address] [place] [address] Ruel Gibson [address] [place] [address] Orders (Non Pre-visit) Social History Tobacco Use Types Packs/Day Years [...] No 03/17/2023 documented as of this encounter Miscellaneous Notes * Telephone Encounter - Yvette Price MA - 04/25/2023 1640 EST Letter detailing suture removal instructions and type of suture used along with office visit from 04/14/2023 faxed to [facility]. YVETTE PRICE MA 04/25/2023 16:41 * Telephone Encounter - Marisol Irvin - 04/22/2023 1420 EST Patient calling regarding suture removal from 04/14/2023 Surgery with . Patient will be getting the sutures out at on 04/25/2023. Patient states they need a order sentto them to be able to remove the sutures. I called [facility] and verified she will be seeing them on 04/25/2023 for wound therapy. I also verified where to send the suture removal orders too. Fax number [phone] documented in this encounter Plan of Treatment Upcoming Encounters Date Type Department Care Team (Late st Contact Info) Description 03/23/2024 13:00 EST Office Visit [facility] Dermatology 3rd Floor [facility] [address] [place] [address] Usha Bustos MD [address] [place] [address] documented as of this encounter Visit Diagnoses Not on filedocumented in this encounter Care Teams Health Educator Relationship Specialty Start Date End Date [facility], [address] [place] [address] PCP - General 03/17/23 12/07/23 documented as of this encounter
--- OUTSIDE RECORDS SUMMARY | 2023-12-19 19:41 | XMS_ITS | Encounter Summary ---
Author Organization [facility] Address [address] [place] [address] Care Team Providers Care Transitional Care Liaison Name Role Phone [facility] Rigoberto Belle Primary Care Provider Reason for Visit * Reason Comments Follow-up Skin lesions Encounter Details Date Type Department Care Team (Late st Contact Info) Description 05/30/2023 14:00 EST Office Visit [facility] Dermatology 5th Floor [facility] [address] [place] [address] Ruel Gibson [address] [place] [phone] Multiple benign nevi (Primary Dx); Seborrheic keratoses; Lentigines; History of nonmelanoma skin cancer; History of melanoma; Actinic skin damage; Scar Social History Tobacco Use Types Packs/Day Years Used Date Smoking Tobacco: Former Cigarettes Passive Smoke Exposure: Never Smokeless Tobacco: Never Tobacco Cessation:Counseling Given: Not Answered Sex and Gender Information Value Date Recorded [...] No 03/17/2023 documented as of this encounter Progress Notes * Ruel Gibson - 05/30/2023 1400 EST Dermatology Outpatient Visit Note Chief Complaint: Follow-up (Skin lesions) Dermatologic History: - Hx of MIS, 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 Swanson is a 82 y.o. female who presents for FBSE and f/u skin lesions, no spots of concerns. OBJECTIVE: Cutaneous full body examination excluding genitalia was performed. - trunk and extremities: multiple waxy, stuck-on appearing papules - trunk and extremities: multiple light evans regular appearing macules - multiple regular appearing flat brown macules on trunk and extremities - well healed scar of left shoulder and left upper back ASSESSMENT & PLAN: Melanocytic Nevi -Multiple nevi with benign features on clinical and dermatoscopic exam -Continue to monitor for change Seborrheic Keratosis Lentigines - Benign, reassurance Hx of NMSC Hx of Melanoma in situ Sun Damaged Skin Scar - No visible or palpable evidence of recurrence on today's exam -The nature of sun-induced photo-aging and skin cancers is discussed. - Recommend and counseled on the use of over the counter broad spectrum (UVa and UVb blocking) 30-SPF sunscreens as well as sun avoidance, and sun protective clothing -Observe closely for skin damage/changes, and call if such occurs. FOLLOW UP: Return in about 6 months (around 11/28/2023) for FBSE Hx MM. Ruel Gibson 05/30/2023 14:20 Attestation Statement: I saw and examined the patient with the resident/fellow. I agree with the findings and plan of care documented in the resident's/fellow's note. Akash Hood MD documented in this encounter Plan of Treatment Upcoming Encounters Date Type Department Care Team (Late st Contact Info) Description 03/23/2024 13:00 EST Office Visit [facility] Dermatology 3rd Floor [facility] [address] [place] [address] Usha Bustos MD [address] [place] [phone] documented as of this encounter Visit Diagnoses Diagnosis Multiple benign nevi- Primary Benign neoplasm of skin, site unspecified Seborrheic keratoses Lentigines Other dyschromia History of nonmelanoma skin cancer Personal history of other malignant neoplasm of skin History of melanoma Personal history of malignant melanoma of skin Actinic skin damage 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 Medication Sig Dispensed Refills Start Date End Date tryptophan 500 mg tablet Take by mouth. added in this encounter Care Teams Transitional Care Liaison Relationship Specialty Start Date End Date [facility], [address] [place] [address] PCP - General 03/17/23 12/07/23 documented as of this encounter
--- OUTSIDE RECORDS SUMMARY | 2023-12-19 19:41 | XMS_ITS | Clinical Summary ---
Author Organization [facility] [place] [address] Care Team Providers Care Wool Presser Name Role Phone Unavailable Primary Care Provider Unavailabl e Social History Tobacco Use Types Packs/Day Years Used Date Smoking Tobacco: Never Assessed Sex and Gender Information Value Date Recorded Sex Assigned at Not on file Gender Identity Not on file Sexual Orientation Not on file Plan of Treatment Health Maintenance Due Date Last Done Comments Tdap adult 1961 Tetanus vaccine 1961 Zoster vaccine (1 of 2) 1992 Advance Directive 1997 Bone Density Scan 06/25/2007 Pneumoccocal Vaccine: 65+ (1 of 1 - PCV) 06/25/2007 Covid-19 Vaccine (1 - 2022- season) 2023 Influenza (Flu) vaccine (1 o f 1 - Influenza standard series) 12/04/2023
--- OUTSIDE RECORDS SUMMARY | 2023-12-19 19:41 | XMS_ITS | Continuity of Care Document ---
Author Organization [facility] Address [address] [place] [address] Care Team Providers Care Janitor Name Role Phone Primeau Jacob DAN Primary Care Physician Encounter [facility] Date(s): 07/08/23 - 07/08/23 [facility] [address] [place] [address] Discharge Disposition: Home or Self Care Attending Physician: Linette Bowen MANAGER PRIMARY Admitting Physician: Linette Bowen MANAGER PRIMARY Referring Physician: Linette Bowen MANAGER PRIMARY Allergies, Adverse Reactions, Alerts Substance Reaction Severity Status ANIMAL DANDER Unknown Active LATEX Urticaria Moderate Active SHELLFISH DERIVED Palpitations Unknown Active HOUSE DUST Unknown Active MOLD Unknown Active sulfa drugs Unknown Active Medications Advair Diskus 250 mcg-50 mcg inhalation [...] pain, # 3 tab, 0 Refill(s), Pharmacy: [email or web address], 165.1, cm, 09/29/22 10:39:00 EDT, Height/Length [...] Com pleted Appendectomy Completed Tubal ligation Completed Social History Social History Type Response Tobacco Tobacco use status u nknown Tobacco Use:. Sex Female Patient Care team information Care Team Personnel Name: Jacob Morton MD Position: No Access Member Role: Informed Provider Address: Address: [address] [address] Care Team Related Persons Name: HARDIK ENGLE Address: Home [address] [place] [phone]
--- OUTSIDE RECORDS SUMMARY | 2023-12-19 19:41 | XMS_ITS | Encounter Summary ---
Author Organization [facility] [place] [address] Care Team Providers Care Wood Pile Driver Operator Name Role Phone Unavailable Primary Care Provider Unavailabl e Encounter Details Date Type Department Care Team (Late st Contact Info) Description 02/15/2023 Telephone Dermatology at [facility] [address] [place] [phone] Redd Matias MD [address] [facility] [place] [address] Social History Tobacco Use Types Packs/Day Years Used Date Smoking Tobacco: Never Assessed Sex and Gender Information Value Date Recorded Sex Assigned at Not on file Gender Identity Not on file Sexual Orientation Not on file documented as of this encounter Miscellaneous Notes * Telephone Encounter - Kelly Cedillo - 02/15/2023 2:04 PM EST Clinic Coverage - Reason for Call: Other PCP: No Pcp on file / Treating provider: Wrong number Message: Just an FYI that someone called in stating they received a vm asking for a Stefanie to call back to get scheduled from a referral however, the below number called and listed on this pt's chart is NOT the pt's number. Caller Name (If other than patient): NA Relationship to Patient (if other than self): Callback number: [phone] Best time you are available: NA Route Per Clinic Coverage Page documented in this encounter Plan of Treatment Not on file documented as of this encounter Visit Diagnoses Not on filedocumented in this encounter
--- OUTSIDE RECORDS SUMMARY | 2023-12-19 19:41 | XMS_ITS | Continuity of Care Document ---
Author Organization [facility] Address [address] [place] [address] Care Team Providers Care Block Out Machine Operator Name Role Phone Primeau Jacob DAN Primary Care Physician Encounter [facility] Date(s): 03/14/23 - 03/14/23 [facility] [address] [place] [address] Discharge Disposition: Home or Self Care Attending Physician: Linette Bowen PROFESSOR OF EARLY CHILDHOOD EDUCATION Admitting Physician: Linette Bowen PROFESSOR OF EARLY CHILDHOOD EDUCATION Referring Physician: Linette Bowen PROFESSOR OF EARLY CHILDHOOD EDUCATION Allergies, Adverse Reactions, Alerts Substance Reaction Severity [...] pain, # 3 tab, 0 Refill(s), Pharmacy: [facility], 165.1, cm, 09/29/22 10:39:00 EDT, Height/Length [...] Access Member Role: Informed Provider Address: Address: [address] [address] Care Team Related Persons Name: HARDIK ENGLE Address: Home [address] [place] [phone]
--- OUTSIDE RECORDS SUMMARY | 2023-12-19 19:41 | XMS_ITS | Encounter Summary ---
Author Organization [facility] Address [address] [place] [address] Care Team Providers Care Grocery Clerk Name Role Phone [facility] Rigoberto Belle Primary Care Provider Reason for Visit * Reason Onset Date Comments Other 04/05/2023 Encounter Details Date Type Department Care Team (Late st Contact Info) Description 04/05/2023 Telephone [facility] Dermatology 3rd Floor [facility] [address] [place] [address] Ruel Gibson [address] [place] [address] Other Social History Tobacco Use Types Packs/Day Years [...] encounter Miscellaneous Notes * Telephone Encounter - Tennille Cline - 04/05/2023 0843 EST Received fax OV notes from PCP visit on 04/01/2023. Notes have been scanned into chart documented in this encounter Plan of Treatment Upcoming Encounters Date Type Department Care Team (Late st Contact Info) Description 03/23/2024 13:00 EST Office Visit [facility] Dermatology 3rd Floor [facility] [address] [place], [place] [address] Usha Bustos MD [address] [place], [place] [phone] documented as of this encounter Visit Diagnoses Not on filedocumented in this encounter Care Teams Grocery Clerk Relationship Specialty Start Date End Date [facility] C[facility], [address] [place], [place] [phone] PCP - General 03/17/23 12/07/23 documented as of this encounter
--- OUTSIDE RECORDS SUMMARY | 2023-12-19 19:41 | XMS_ITS | Encounter Summary ---
Author Organization [facility] Address [address] [place] [address] Care Team Providers Care Aerial Hurricane Hunter Name Role Phone [facility] Rigoberto Belle Primary Care Provider Unknown, Provider Primary Care Provider [phone] Encounter Details Date Type Department Care Team (Late st Contact Info) Description 09/30/2023 Lab Requisition [facility] Pathology & Laboratory Medicine [address] [address] Outr Resulting Lab, Provider Social History Tobacco [...] Info) Description 03/23/2024 13:00 EST Office Visit [facility] Dermatology 3rd Floor [address] [address] Usha Bustos MD [address] [place] [address] documented as of this encounter Procedures Procedure Name Priority Date/Time Associated Diagnosis Comments FECAL BACTERIAL PATHOGENS BY PCR Routine 09/30/2023 16:00 EDT GIARDIA AND CRYPTOSPORIDIUM ANTIGENS Routine 09/30/2023 16:00 EDT H. PYLORI ANTIGEN Routine 09/30/2023 16: 00 EDT documented in this encounter Results * FECAL BACTERIAL PATHOGENS BY PCR (09/30/2023 16:00 EDT) Salmonella PCR Negative Negative 10/01/2023 11:17 EDT [facility] Shigella/Enteroin vasive E. coli Negative Negative 10/01/2023 11:17 EDT [facility] HN LAB CAMPYLOBACTER PCR Negative Negative 10/01/2023 11:17 EDT [facility] Shiga Toxin PCR Negative Negative 11:17 EDT [facility] Feces SPECIMEN FROM RECTUM / Unknown 09/30/2023 16:00 EDT 09/30/2023 22:44 EDT Provider Outr Resulting Lab MICROBIOLOGY - GENERAL ORDERABLES Performing Organization Address [facility]/ZIP Co de Phone Number [facility] [address] [place] [phone] * GIARDIA AND CRYPTOSPORIDIUM ANTIGENS (09/30/2023 16:00 EDT) Giardia and Cryptosporidium Cryptosporidium Antigen Neg and Giardia Antigen Neg Cryptosporidium Antigen Neg and Giardia Antigen Neg 11:01 EDT [facility] Feces SPECIMEN FROM RECTUM / Unknown 09/30/2023 16:00 EDT 09/30/2023 22:44 EDT Provider Outr Resulting Lab MICROBIOLOGY - GENERAL ORDERABLES [facility] [address] [place] [address] * H. PYLORI ANTIGEN (09/30/2023 16:00 EDT) H. Pylori Negative Negative 10/04/2023 13:22 EDT [facility] Comment:Indicates the absenc e of H. pylori stool antigen, (or the level of antigen is below that which can be detected by the assay) Feces SPECIMEN FROM RECTUM / Unknown 09/30/2023 16:00 EDT 09/30/2023 22:29 EDT Narrative [facility] - 10/04/2023 13:22 EDT New Liaison XL testing method used as of 01/24/2023 Provider Outr Resulting Lab MICROBIOLOGY - GENERAL ORDERABLES [facility] [address] [place] [address] documented in this encounter Visit Diagnoses Not on filedocumented in this encounter Care Teams Aerial Hurricane Hunter Relationship Specialty Start Date End Date [facility], [address] [place] [address] PCP - General 03/17/23 12/07/23 Unknown, Provider, PCP - General 12/08/23 documented as of this encounter
--- OUTSIDE RECORDS SUMMARY | 2023-12-19 19:41 | XMS_ITS | Encounter Summary ---
Author Organization [facility] Address [address] [place] [address] Care Team Providers Care Software Development Manager Name Role Phone Unavailable Primary Care Provider Unavailabl e Encounter Details Date Type Department Care Team (Late st Contact Info) Description 06/09/2011 Results Only [facility] [phone] Anali Ford, PACarmenzaC [address] [place] [address] Social History Tobacco Use Types Packs/Day Years [...] Visit [facility] Dermatology 3rd Floor [facility] [address] [place] [address] Usha Bustos MD [address] [place] [address] documented as of this encounter Procedures Procedure Name Priority Date/Time Associated Diagnosis Comments PAP TEST- RESULT ONLY Routine 06/09/2011 0:00 EST documented in this encounter Results * PAP TEST- RESULT ONLY (06/09/2011 0:00 EST) Pathology Report: CYTOPATHOLOGY REPORT Reports generated via electronic interface contain original data; however they are lacking the format of the original report. Caution should be taken when reading/interpreti ng unformatted reports. Name: ? STEFANIE SWANSON ? Accession #: ? [id number] : ? 1940 (Age: 70) ??F ?Collect Date: ? 06/09/2011 Location: ? [facility] ? Receive Date: ? 06/10/2011 Provider: ?ANALI MORRELL Copy to: ? [facility] ?[facility] ? [address] ?[place], [place] [address] ? Specimen/Source: ?Pap Test, Cervix, ThinPrep Imaging System with manual evaluation Last Menstrual Period: ? Menstrual/Pregnanc y Status: ? Post Menopausal ? SPECIMEN ADEQUACY ? Satisfactory for Evaluation - assessment of transformation zone component not applicable ( e.g. atrophy, vaginal sample, hysterectomy) GENERAL CATEGORIZATION ? Negative for Intraepithelial Lesion or Malignancy ? Document reviewed and electronically signed by: ? TRACI Mclaughlin(ASCP) ? Report Date: ??06/14/2011 09:20 End of Report [facility] 06/09/2011 06/10/2011 Anali B Ford PA-C PATHOLOGY ORDERABLES [facility] [address] [place] [address] documented in this encounter Visit Diagnoses Not on filedocumented in this encounter
--- OUTSIDE RECORDS SUMMARY | 2023-12-19 19:41 | XMS_ITS | Clinical Summary ---
Author Organization [facility] Address [address] [place] [address] Care Team Providers Care Pull Worker Name Role Phone Unknown, Provider Primary Care Provider [phone] Allergies No known active allergies Medications Medication Sig Dispensed Refills Start Date End Date Status famotidine (PEPCID) 20 mg tablet Take 1 Tablet by mouth 2 times daily. Active ferrous gluconate (FERGON) 324 mg (38 mg iron) tablet Take 1 Tablet by mouth daily with breakfast. Active fluticasone propion-salmeteroL (ADVAIR) 100-50 mcg/dose diskus inhaler Inhale 1 Puff as directed every 12 hours. Active atorvastatin (LIPITOR) 10 mg tablet Take 1 Tablet by mouth daily. Active Melatonin 1 mg tablet Take by mouth. Active tryptophan 500 mg tablet Take by mouth. Active Active Problems No known active problems Encounters Date Type Department Care Team Description 12/05/2023 Telephone [facility] Endocrinology - [address] [address] Usha Bustos MD Appointment Related (Cancel and reschedule) 09/30/2023 Lab Requisition [facility] Pathology & Laboratory Medicine - Main [place] [address] [place], [place] [id number] Outr Resulting Lab, Provider from Last 3 Months Social History Tobacco Use Types Packs/Day Years Used Date Smoking Tobacco: Former Cigarettes Passive Smoke Exposure: Never Smokeless Tobacco: Never Tobacco Cessation:Counseling Given: Not Answered Sex and Gender Information Value Date Recorded Sex Assigned at Not on file Gender Identity Not on file Sexual Orientation Not on file Obstetrics History Plan of Treatment Upcoming Encounters Date Type Department Care Team ([facility] Contact Info) Description 03/23/2024 13:00 EST Office Visit [facility] Dermatology 3rd Floor [facility] [address] [place] [address] Usha Bustos MD [address] [place], [place] [id number] Health Maintenance Due Date Last Done Comments RSV Immunization ( o r 60+ Years) (1 - 1-dose 60+ series) 2002 Fall Risk Screening 06/25/2007 COVID-19 Vaccine ( season) 2023 Procedures Procedure Name Priority Date/Time Associated Diagnosis Comments FECAL BACTERIAL PATHOGENS BY PCR Routine 09/30/2023 16:00 EDT GIARDIA AND CRYPTOSPORIDIUM ANTIGENS Routine 09/30/2023 16:00 EDT H. PYLORI ANTIGEN Routine 09/30/2023 16: 00 EDT from Last 3 Months Results * FECAL BACTERIAL PATHOGENS BY PCR (09/30/2023 16:00 EDT) Salmonella PCR Negative Negative 10/01/2023 11:17 EDT [facility] Shigella/Enteroin vasive E. coli Negative Negative 10/01/2023 11:17 EDT [facility] HN LAB CAMPYLOBACTER PCR Negative Negative 10/01/2023 11:17 EDT [facility] Shiga Toxin PCR Negative Negative 11:17 EDT [facility] Feces SPECIMEN FROM RECTUM / Unknown 09/30/2023 16:00 EDT 09/30/2023 22:44 EDT Provider Outr Resulting Lab MICROBIOLOGY - GENERAL ORDERABLES [facility] [address] [place], [place] [id number] * GIARDIA AND CRYPTOSPORIDIUM ANTIGENS (09/30/2023 16:00 EDT) Giardia and Cryptosporidium Cryptosporidium Antigen Neg and Giardia Antigen Neg Cryptosporidium Antigen Neg and Giardia Antigen Neg 11:01 EDT [facility] Feces SPECIMEN FROM RECTUM / Unknown 09/30/2023 16:00 EDT 09/30/2023 22:44 EDT Provider Outr Resulting Lab MICROBIOLOGY - GENERAL ORDERABLES Performing Organization Address City/[facility]/ZIP Co de Phone Number [facility] [address] [place], [place] [address] * H. PYLORI ANTIGEN (09/30/2023 16:00 EDT) H. Pylori Negative Negative 10/04/2023 13:22 EDT [facility] Comment:Indicates the absenc e of H. pylori stool antigen, (or the level of antigen is below that which can be detected by the assay) Feces SPECIMEN FROM RECTUM / Unknown 09/30/2023 16:00 EDT 09/30/2023 22:29 EDT Narrative [facility] - 10/04/2023 13:22 EDT New Liaison XL testing method used as of 01/24/2023 Provider Outr Resulting Lab MICROBIOLOGY - GENERAL ORDERABLES Performing Organization Address City/[facility]/ZIP Co de Phone Number [facility] [address] [place], [place] [address] from Last 3 Months Care Teams Pull Worker Relationship Specialty Start Date End Date Unknown, Provider, PCP - General 12/08/23
--- OUTSIDE RECORDS SUMMARY | 2023-12-19 19:41 | XMS_ITS | Encounter Summary ---
Author Organization [facility] Address [address] [place] [address] Care Team Providers Care Public Service Representative Name Role Phone [facility], Rigoberto Primary Care Provider Unknown, Provider Primary Care Provider [phone] Encounter Details Date Type Department Care Team (Late st Contact Info) Description 12/23/2022 Lab Requisition [facility] Pathology & Laboratory Medicine [address] [address] Linette Bowen, METEOROLOGICAL AIDE [address] [place], [place] [address] Disorder of the skin and subcutaneous tissue, unspecified Social History Tobacco Use Types Packs/Day Years Used Date Smoking Tobacco: Never Assessed Sex and Gender Information Value Date Recorded Sex Assigned at Not on file Gender Identity Not on file Sexual Orientation Not on file documented as of this encounter Plan of Treatment Upcoming Encounters Date Type Department Care Team (Late st Contact Info) Description 03/23/2024 13:00 EST Office Visit [facility] Dermatology 3rd Floor [address] [id number] Usha Bustos MD [address] [place], [place] [address] documented as of this encounter Procedures Procedure Name Priority Date/Time Associated Diagnosis Comments SURGICAL PATHOLOGY Today 12/22/2022 10 :25 EDT Disorder of the skin and subcutaneous tissue, unspecified documented in this encounter Results * SURGICAL PATHOLOGY (12/22/2022 10:25 EDT) Note to Patient The following pathology results have been interpreted by your pathologist and may be available to you before your health provider has had the opportunity to review them. Please allow time for your provider to receive these results and explore management options, if applicable. 12/24/2022 8:51 [facility] Final Diagnosis A. SKIN OF ARM, LEFT UPPER, SHAVE BIOPSIES: - Basal cell carcinoma, nodular type. - Lesion extends to biopsy base. 12/24/2022 8:51 [facility] Attestation By the signature below, the attending physician certifies that they have 1) personally conducted a gross and/or microscopic examination of the described specimen(s), and/or personally interpreted the results of laboratory testing of the described specimen(s), and 2) personally rendered or confirmed the above diagnosis. 12/24/2022 8:51 [facility] at 0851 Clinical History Persistent skin lesion left upper arm, irregularly shaped, nodular; clinical diagnosis code: L98.9 12/24/2022 8:51 [facility] Gross Description A. Received in formalin labelled with proper patient identification (initials D, F) and left upper arm are two irregular santizo-brown soft tissue fragments without obvious orientation, 0.2 x 0.1 x 0.1 cm and 0.3 x 0.3 x 0.2 cm. Entirely submitted in A1. PORSCHE BENSON(ASCP) 12/23/2022 17:44 12/24/2022 8:51 [facility] Performing Lab [facility] 12/24/2022 8:51 [facility] Scanned Images 12/24/2022 8:51 [facility] Tissue SPECIMEN FROM SKIN / Unknown 12/22/2022 10:25 EDT 12/23/2022 17:23 EDT Linette Bowen METEOROLOGICAL AIDE PATHOLOGY ORDERABLES [facility] [address] [place] [address] documented in this encounter Visit Diagnoses Diagnosis Disorder of the skin and subcutaneous tissue, unspecified documented in this encounter Care Teams Public Service Representative Relationship Specialty Start Date End Date [facility], [facility] [address] [place] [address] PCP - General 03/17/23 12/07/23 Unknown, Provider, PCP - General 12/08/23 documented as of this encounter
--- OUTSIDE RECORDS SUMMARY | 2023-12-19 19:41 | XMS_ITS | Encounter Summary ---
Author Organization [facility] Address [address] [place] [address] Care Team Providers Care Scaffold Setter Name Role Phone Unavailable Primary Care Provider Unavailabl e Encounter Details Date Type Department Care Team (Late st Contact Info) Description 02/10/2010 Results Only [facility] Laboratory Services - [facility] [address] [place], [place] [address] Tom Lr PA [address] [place], [place] [address] Social History Tobacco Use Types Packs/Day Years Used Date Smoking Tobacco: Never Assessed Sex and Gender Information Value Date Recorded Sex Assigned at Not on file Gender Identity Not on file Sexual Orientation Not on file documented as of this encounter Plan of Treatment Upcoming Encounters Date Type Department Care Team (Late st Contact Info) Description 03/23/2024 13:00 EST Office Visit [facility] Dermatology 3rd Floor [facility] [address] [place] [address] Usha Bustos MD [address] [place], [place] [address] documented as of this encounter Procedures Procedure Name Priority Date/Time Associated Diagnosis Comments CYTOPATHOLOGY Routine 02/10/2010 0:00 EST documented in this encounter Results * CYTOPATHOLOGY (02/10/2010 0:00 EST) Pathology Report: CYTOPATHOLOGY REPORT ? Reports generated via electronic interface contain original data; ? however they are lacking the format of the original report. ? Caution should be taken when reading/interpreti ng unformatted reports. ? Name: ? STEFANIE SWANSON ? Accession #: ? [id number] ? : ? 1940 (Age: 69) ??F ?Collect Date: ? 02/10/2010 ? Location: ? [facility] ? Receive Date: ? 02/12/2010 ? Provider: TOM LONTINE PA ? Copy to: ? Final Report ? SPECIMEN ADEQUACY ? Satisfactory for Evaluation ? - assessment of transformation zone component not applicable ( e.g. atrophy, ? vaginal sample, hysterectomy) ? - scant squamous epithelial component ? GENERAL CATEGORIZATION ? Negative for Intraepithelial Lesion or Malignancy ? Last Menstural Period: 4 yrs ? Menstural/Pregnanc y Status: ??Menopausal: x 4 yrs ? Specimen/Source: ??Pap Test, Endocervix, ThinPrep Imaging System with manual ? evaluation ? Document reviewed and electronically signed by: ? TRACI Quezada(ASCP) ? Report ??Date: 02/17/2010 11:20 ? HPV with Pap Test ? Date Ordered: ? 02/17/2010 ? Status: ?? Signed Out ?Date Complete: ? 02/19/2010 ? By: ??System Interface ? Date Reported: ? 02/19/2010 ? * Amended * ? Interpretation ? RESULT: Quantity not sufficient. ? Credit Issued ? Corrected on 11/18 AT 0902: Previously reported as Ordered ? in error Credit Issued ? Comments ? Document reviewed and electronically signed by: ? System Interface ? Report date: 02/19/2010 ? By the signature above, the attending physician certifies that he/she has ? personally conducted a gross and/or microscopic examination of the described ? specimens and rendered or confirmed the above diagnosis. ? Amendments for HPV with Pap Test (02/17/2010) ? Amended: ??02/19/2010 by System Interface ? Reason: ? HPV Results Reported ? Previous Signout Date: ??02/17/2010 ? Amended: ??02/19/2010 by System Interface ? Reason: ? HPV Results Reported ? Previous Signout Date: ??02/19/2010 ? End of Report ? [facility] 02/10/2010 02/12/2010 Tom MORRELL PATHOLOGY ORDERABLES [facility] [address] [place] [address] documented in this encounter Visit Diagnoses Not on filedocumented in this encounter
--- OUTSIDE RECORDS SUMMARY | 2023-12-19 19:41 | XMS_ITS | Referral Summary ---
Author Organization [facility] Address [address] [place] [address] Care Team Providers Care Highway Traffic Control Technician Name Role Phone Unknown, Provider Primary Care Provider [phone] Encounters Date Type Department Care Team Description 12/05/2023 Telephone [facility] Endocrinology - [facility] [address] [place] [address] Usha Bustos MD Appointment Related (Cancel and reschedule) 09/30/2023 Lab Requisition [facility] Pathology & Laboratory Medicine - Main [place] [address] [place] [address] Outr Resulting Lab, Provider from Last 3 Months Allergies No known active allergies Medications Medication [...] Active Active Problems No known active problems Social History Tobacco Use Types Packs/Day Years Used Date Smoking Tobacco: Former Cigarettes Passive Smoke Exposure: Never Smokeless Tobacco: Never Tobacco Cessation:Counseling Given: Not Answered Sex and Gender Information Value Date Recorded Sex Assigned at Not on file Gender Identity Not on file Sexual Orientation Not on file Functional Status Functional Status Response Date of [...] concentrating, remembering, or making decisions? No 03/17/2023 Plan of Treatment Upcoming Encounters Date Type Department Care Team (Late st Contact Info) Description 03/23/2024 13:00 EST Office Visit [facility] Dermatology [address] [facility] [address] [place], [place] [address] Usha Bustos MD [address] [place] [address] Procedures Procedure Name Priority Date/Time Associated Diagnosis Comments FECAL BACTERIAL PATHOGENS BY PCR Routine 09/30/2023 16:00 EDT GIARDIA AND CRYPTOSPORIDIUM ANTIGENS Routine 09/30/2023 16:00 EDT H. PYLORI ANTIGEN Routine 09/30/2023 16: 00 EDT from Last 3 Months Results * FECAL BACTERIAL PATHOGENS BY PCR (09/30/2023 16:00 EDT) Salmonella PCR Negative Negative 10/01/2023 11:17 EDT [facility] Shigella/Enteroin vasive E. coli Negative Negative 10/01/2023 11:17 EDT [facility] HN LAB CAMPYLOBACTER PCR Negative Negative 10/01/2023 11:17 EDT [facility] Shiga Toxin PCR Negative Negative 11:17 EDT [facility] Feces SPECIMEN FROM RECTUM / Unknown 09/30/2023 16:00 EDT 09/30/2023 22:44 EDT Provider Outr Resulting Lab MICROBIOLOGY - GENERAL ORDERABLES [facility] [address] [place] [address] * GIARDIA AND CRYPTOSPORIDIUM ANTIGENS (09/30/2023 16:00 EDT) Giardia and Cryptosporidium Cryptosporidium Antigen Neg and Giardia Antigen Neg Cryptosporidium Antigen Neg and Giardia Antigen Neg 11:01 EDT [facility] Feces SPECIMEN FROM RECTUM / Unknown 09/30/2023 16:00 EDT 09/30/2023 22:44 EDT Provider Outr Resulting Lab MICROBIOLOGY - GENERAL ORDERABLES Performing Organization Address City/[facility]/ZIP Co de Phone Number [facility] [address] [place], [place] [address] * H. PYLORI ANTIGEN (09/30/2023 16:00 EDT) H. Pylori Negative Negative 10/04/2023 13:22 EDT [facility] Comment:Indicates the absenc e of H. pylori stool antigen, (or the level of antigen is below that which can be detected by the assay) Feces SPECIMEN FROM RECTUM / Unknown 09/30/2023 16:00 EDT 09/30/2023 22:29 EDT Narrative [facility] - 10/04/2023 13:22 EDT New Liaison XL testing method used as of 01/24/2023 Provider Outr Resulting Lab MICROBIOLOGY - GENERAL ORDERABLES Performing Organization Address City/[facility]/ZIP Co de Phone Number [facility] [address] [place] [address] from Last [address] Traffic Control Technician Relationship Specialty Start Date End Date Unknown, Provider, PCP - General 12/08/23
--- OUTSIDE RECORDS SUMMARY | 2023-12-19 19:41 | XMS_ITS | Encounter Summary ---
Author Organization [facility] Address [address] [place] [address] Care Team Providers Care Dowel Setting Machine Operator Name Role Phone [facility] Rigoberto Belle Primary Care Provider Unknown, Provider Primary Care Provider [phone] Encounter Details Date Type Department Care Team (Late st Contact Info) Description 04/14/2020 Lab Requisition [facility] Pathology & Laboratory Medicine [facility] [address] [place] [address] Outr Resulting Lab, Provider Social History Tobacco [...] Info) Description 03/23/2024 13:00 EST Office Visit [facility] Dermatology 3rd Floor [facility] [address] [place] [address] Usha Bustos MD [address] [place] [address] documented as of this encounter Procedures Procedure Name Priority Date/Time Associated Diagnosis Comments DO NOT ORDER STANDALONE - BROAD COVID TEST Today 04/14/2020 14:20 EST COVID-19 TESTING Routine 04/14/2020 14:2 0 EST documented in this encounter Results * (ABNORMAL) DO NOT ORDER STANDALONE - BROAD COVID TEST (04/14/2020 14:20 EST) COVID-19 rt-PCR Result POSITIVE( AA) Negative 04/15/2020 20:45 EST [facility] Comment: Positive for detection of 2019-novel Coronavirus (2019-nCoV) by qRT-PCR. Limitations Positive results are indicative of active infection with SARS-CoV-2 but do not rule out bacterial infection or co-infection with other viruses. The agent detected may not be the definite cause of disease. In addition, detection of viral RNA may not indicate the presence of infectious virus or that SARS-CoV-2 is the causative agent for clinical symptoms. Negative results do not preclude SARS-CoV-2 infection and should not be used as the sole basis for patient management decisions. Negative results must be combined with clinical observations, patient history, and epidemiological information. False negative results may also occur if amplification inhibitors are present in the specimen or if inadequate numbers of organisms are present in the specimen. Optimum specimen types and timing for peak viral levels during infections caused by SARS-CoV-2 have not been fully determined. Collection of multiple specimens (types and time points) from the same patient may be necessary to detect the virus. The test was validated for use with upper respiratory specimens obtained via nasopharyngeal or oropharyngeal swabs in VTM, UTM, M4, M5, M6, saline, and MTM media. The performance of this test has not been established for other specimens. Specimens collected using other FDA recommended Specimen Collection Materials listed in the FDA COVID-19 [employer] communication (June 28, 2019) are processed with the caveat that they were not all validated for use with this test and the result must be interpreted in this context. Furthermore, a false negative results may occur if a specimen is improperly collected, transported or handled. If the virus mutates in the RT-PCR target region, SARS-CoV-2 may not be detected or may be detected less predictably. Inhibitors or other types of interference may produce a false negative result. An interference study evaluating the effect of common cold medications was not performed. This test is not FDA-cleared but its performance characteristics were established by our CLIA-certified, CAP-accredited, high complexity laboratory in accordance with CLIA regulations, [employer] [place] [employer] (CAP) guidelines (Jun 21, 2019), and FDA guidance (Jun 02, 2019). This test is only for use under the Food and Drug Administration's Emergency Use Authorization. Swab ENTIRE NASOPHARYNX / Unknown 04/14/2020 14:20 EST 04/14/2020 22:33 EST Provider Outr Resulting Lab MICROBIOLOGY - GENERAL ORDERABLES [place], [place] * (ABNORMAL) COVID-19 TESTING (04/14/2020 14:20 EST) COVID-19 rt-PCR Result POSITIVE(AA) Negative 04/15/2020 21:48 EST [facility] Comment: Positive for detection of 2019-novel Coronavirus (2019-nCoV) by qRT-PCR. Limitations Positive results are indicative of active infection with SARS-CoV-2 but do not rule out bacterial infection or co-infection with other viruses. The agent detected may not be the definite cause of disease. In addition, detection of viral RNA may not indicate the presence of infectious virus or that SARS-CoV-2 is the causative agent for clinical symptoms. Negative results do not preclude SARS-CoV-2 infection and should not be used as the sole basis for patient management decisions. Negative results must be combined with clinical observations, patient history, and epidemiological information. False negative results may also occur if amplification inhibitors are present in the specimen or if inadequate numbers of organisms are present in the specimen. Optimum specimen types and timing for peak viral levels during infections caused by SARS-CoV-2 have not been fully determined. Collection of multiple specimens (types and time points) from the same patient may be necessary to detect the virus. The test was validated for use with upper respiratory specimens obtained via nasopharyngeal or oropharyngeal swabs in VTM, UTM, M4, M5, M6, saline, and MTM media. The performance of this test has not been established for other specimens. Specimens collected using other FDA recommended Specimen Collection Materials listed in the FDA COVID-19 [employer] communication (June 28, 2019) are processed with the caveat that they were not all validated for use with this test and the result must be interpreted in this context. Furthermore, a false negative results may occur if a specimen is improperly collected, transported or handled. If the virus mutates in the RT-PCR target region, SARS-CoV-2 may not be detected or may be detected less predictably. Inhibitors or other types of interference may produce a false negative result. An interference study evaluating the effect of common cold medications was not performed. This test is not FDA-cleared but its performance characteristics were established by our CLIA-certified, CAP-accredited, high complexity laboratory in accordance with CLIA regulations, [employer] [place] [employer] (CAP) guidelines (Jun 21, 2019), and FDA guidance (Jun 02, 2019). This test is only for use under the Food and Drug Administration's Emergency Use Authorization. Performing Lab [facility] 04/15/2020 21:48 EST [facility] Swab 04/14/2020 14:2 0 EST 04/14/2020 22:33 EST Provider Outr Resulting Lab MICROBIOLOGY - GENERAL ORDERABLES Performing Organization Address City/State/[facility] Co de Phone Number [facility] [address] [place] [address] [facility] [place], [place] documented in this encounter Visit Diagnoses Not on filedocumented in this encounter Additional Health Concerns Infection Onset Date Last Indicated Resolved Time COVID-19 04/14/2020 04/14/2020 05/14/2020 22:1 6 EST documented as of this encounter Care Teams Dowel Setting Machine Operator Relationship Specialty Start Date End Date [facility], [address] [place] [address] PCP - General 03/17/23 12/07/23 Unknown, ProviderMD PCP - General 12/08/23 documented as of this encounter
--- OUTSIDE RECORDS SUMMARY | 2023-12-19 19:41 | XMS_ITS | Encounter Summary ---
Author Organization [facility] Address [address] [place] [address] Care Team Providers [employer] Heater Name Role Phone Unavailable Primary Care Provider Unavailabl e Encounter Details Date Type Department Care Team (Late st Contact Info) Description 10/02/2010 Results Only [facility] [phone] Anali Ford, PACarmenzaC [address] [place] [address] Social History Tobacco Use Types Packs/Day Years Used Date Smoking Tobacco: Never Assessed Sex and Gender Information Value Date Recorded Sex Assigned at Not on file Gender Identity Not on file Sexual Orientation Not on file documented as of this encounter Plan of Treatment Upcoming Encounters Date Type Department Care Team (Late st Contact Info) Description 03/23/2024 13:00 EST Office Visit [facility] Dermatology 3rd Floor [facility] [address] [place] [address] Usha Bustos MD [address] [place] [address] documented as of this encounter Procedures Procedure Name Priority Date/Time Associated Diagnosis Comments SURGICAL PATHOLOGY Routine 10/02/2010 0:00 EDT documented in this encounter Results * SURGICAL PATHOLOGY (10/02/2010 0:00 EDT) Pathology Report: SURGICAL PATHOLOGY REPORT ? Reports generated via electronic interface contain original data; ? however they are lacking the format of the original report. ? Caution should be taken when reading/interpreting unformatted reports. ? Name: ? ADAMSE, STEFANIE ? Accession #: ? [id number] ? : ? 1940 (Age: 70) ??F ? Collect Date: ? 10/02/2010 ? Location: ? [facility] ? Receive Date: ? 10/06/2010 ? Provider: ANALI ERWIN PA ? Copy to: ? Final Pathologic Diagnosis: ? Skin of thorax, posterior left, excisional biopsy: ? 1. ?Seborrheic keratosis, irritated and inflamed. ?- Margins negative for seborrheic keratosis. ? Microscopic Description: ? Orthohyperkeratosis and focal parakeratosis thicken the stratum corneum. ?? There is formation of horn pseudocysts. ??The epidermis is hyperplastic with ? acanthosis and papillomatosis. ??The keratinocytes have a basaloid appearance ? with squamous eddies in many areas. ??Within the dermis, there is a moderately ?? dense lymphohistiocytic infiltrate. ??The infiltrate extends into the epidermis ?? with concomitant vacuolar change and keratinocyte necrosis. ??(Dr. Mclean)/favio ? Document reviewed and electronically signed by: ? ALONA MCLEAN MD ? Report ??Date: 10/07/2010 14:39 ? By the signature above, the attending physician certifies that he/she has ? personally conducted a gross and/or microscopic examination of the described ? specimens and rendered or confirmed the above diagnosis. ? Specimen(s) Received: ? 1.5 cm skin lesion posterior L thorax ? Clinical History: ? Skin lesion ? Gross Description: ? Received in formalin labelled Dwelle, Stefanie and lesion posterior L ? thorax is an unoriented elliptical excision of evans-white skin measuring 1.5 x ?? 1.0 cm and is excised to a depth of 0.1 cm. ??There is a central, 0.9 x 0.6 x 0.1 cm, irregular, evans-santizo, granular, friable papule. ??The margins are inked. ??The specimen is serially sectioned and entirely submitted as (A1) central sections ?? and (A2) tips reverse en face. ??(RandySarah Jose)/[facility] ? End of Report ? DON LUGO 10/02/2010 10/06/2010 17: 52 EDT Anali Ford PA-C PATHOLOGY ORDERABLES DON LUGO [address] [place] [address] documented in this encounter Visit Diagnoses Not on filedocumented in this encounter
[2023-12-19 19:42] LABS: HCT 41.1 % (36.0-46.0); HGB 12.9 g/dL (11.2-15.7); MCH 27.9 pg (27.0-33.0); MCHC 31.4 % (32.0-36.0); MCV 89 fL (80-95); Platelet Count 224 10^3/uL (130-400); RBC 4.63 10^6/uL (3.93-5.22); RDW 12.8 % (11.7-14.6); RDW-SD 41.6 fL; WBC 6.36 10^3/uL (4.4-10.8)
[2023-12-19 20:07] LABS: ALT 26 U/L (14-59); AST 23 U/L (15-37); Albumin 3.4 g/dL (3.4-5.0); Alkaline Phosphatase 78 U/L (46-116); Anion Gap 3.7 mmol/L (3-11); BUN 23 mg/dL (7-18); Bilirubin, Total 0.55 mg/dL (0.2-1.0); CO2 29.3 mmol/L (21.0-32.0); CREATININE 0.9 mg/dL (0.55-1.02); Calcium 9.7 mg/dL (8.5-10.1); Chloride 105 mmol/L (98-107); Estimated GFR 64.23 (mL/min/1.73m2); Glucose 95 mg/dL (74-106); Sodium 138 mmol/L (136-145); Total Protein 6.7 g/dL (6.4-8.2)
== END 2023-12-19 19:37 | disposition home or self-care (01) ==
LOC: NCHCN 19:36
PROVIDERS: PCP Physician Assistant; Visit Provider Nurse Practitioner Family
DX: E78.5 Hyperlipidemia, unspecified (principal)
CPT/HCPCS: 80053; 85027

== ENCOUNTER 2025-03-18 15:17 | Outpatient (REF) | payer MEDICARE, MEDICAID, SELFPAY ==
[2025-03-18 20:05] LABS: Abs Immature Grans 0.02 10^3/uL (0.0-0.06); HCT 41.1 % (36.0-46.0); HGB 13.3 g/dL (11.2-15.7); Immature Grans % 0.3 %; MCH 28.2 pg (27.0-33.0); MCHC 32.4 % (32.0-36.0); MCV 87 fL (80-95); MPV 11.0 fL (8.0-11.0); Platelet Count 250 10^3/uL (130-400); RBC 4.72 10^6/uL (3.93-5.22); RDW 12.9 % (11.7-14.6); RDW-SD 40.8 fL; WBC 6.79 10^3/uL (4.4-10.8)
[2025-03-18 20:20] LABS: ALT 29 U/L (10-49); AST 32 U/L (<34); Albumin 4.3 g/dL (3.2-5.0); Alkaline Phosphatase 82 U/L (46-116); Anion Gap 7.4 mmol/L (3-11); BUN 15 mg/dL (9-23); Bilirubin, Total 0.7 mg/dL (0.2-1.2); CO2 27.6 mmol/L (20.0-31.0); Calcium 9.3 mg/dL (8.3-10.6); Chloride 107 mmol/L (98-107); Cholesterol 197 mg/dL (<200); Glucose 91 mg/dL (74-106); HDL Cholesterol 75 mg/dL (>40); Potassium 4.3 mmol/L (3.5-5.1); Sodium 142 mmol/L (136-145); Total Protein 7.1 g/dL (5.7-8.2)
[2025-03-18 20:23] LABS: TSH (W/Ref FT4) 0.67 uIU/mL (0.55-4.78)
== END 2025-03-18 15:18 | disposition home or self-care (01) ==
LOC: NCHCN 15:17
PROVIDERS: PCP Physician Assistant; Visit Provider Nurse Practitioner Family
DX: Z13.220 Encounter for screening for lipoid disorders (principal); I10 Essential (primary) hypertension; Z13.0 Encounter for screening for diseases of the blood and blood-forming organs and certain disorders involving the immune mechanism
CPT/HCPCS: 80053; 80061; 84443; 85025